=== PATIENT | male | born 1950 | race Hispanic/Latino ===

== ENCOUNTER 2018-01-11 13:39 | Emergency (ER) | payer MEDICARE ==
[2018-01-11 14:14] LABS: Base Excess-Venous 0.3 mmol/L (0 (+/- 2.5)); CO2 Tension (PvCO2) 39.9 mmHg (41.0-51.0); Calcium, Ionized 1.15 mmol/L (1.12-1.32); Hemoglobin - Calc 15.4 g/dL (12.0-18.0); O2 Tension (PvO2) 42.1 mmHg (35.0-45.0); Potassium 3.5 mmol/L (3.4-4.7); T. Carbon Dioxide 26.2 mmol/L (1.0-85.0); pH (Venous) 7.405 (7.35-7.45); vO2 Saturation-calc 77.9 % (94-98)
[2018-01-11 14:19] LABS: #Eosinphils 0.1 thou/uL (0.0-0.7); #Lymphocytes 2.6 thou/uL (1.20-3.40); #Monocytes 0.4 thou/uL (0.11-0.59); #Neutrophils 6.1 thou/uL (1.40-6.50); %Basophils 0.5 % (0.0-1.0); %Eosinophils 1.3 % (0.0-10.0); %Lymphocytes 27.8 % (21.0-51.0); %Monocytes 4.7 % (0.0-10.0); %Neutrophils 65.7 % (42.0-75.0); Hemoglobin 16.5 g/dL (14.0-18.0); Mean Corpuscular HGB CONC 36.1 g/dL (32.0-36.0); Mean Corpuscular Hemoglobin 32.2 pg (27.0-31.0); Mean Platelet Volume 9.5 fL (7.4-10.4); Platelet Count 212 thou/uL (130-400); RBC Distribution Width 12.2 % (11.5-14.5); Red Blood Cell (RBC) Count 5.12 mill/uL (4.70-6.10); White Blood Cell (WBC) Count 9.3 thou/uL (4.8-10.8)
[2018-01-11 14:32] LABS: ALT (SGPT) 27 U/L (8-55); AST (SGOT) 21 U/L (5-34); Albumin 4.3 g/dL (3.4-4.8); Alkaline Phosphatase 78 U/L (40-150); Anion Gap 15 mmol/L (10-20); BUN (Urea Nitrogen) 14 mg/dL (8.4-25.7); Bilirubin, Total 0.4 mg/dL (0.2-1.2); Calc. Creatinine Clearance 0 mL/min (70-130); Calcium 9.9 mg/dL (7.8-10.44); Carbon Dioxide 24 mmol/L (23-31); Chloride 100 mmol/L (98-107); Estimated GFR-MDRD 53; Globulin 3.9 g/dL (2.4-3.5); Glucose 361 mg/dL (80-115); Potassium 3.6 mmol/L (3.5-5.1); Protein, Total 8.2 g/dL (5.8-8.1); Sodium 135 mmol/L (136-145)
[2018-01-11 14:40] LABS: Bilirubin Negative (Negative); Blood, Urine Trace (Negative); Clarity CLEAR (Clear); Glucose, Urine (Dipstick) >=1000 mg/dL (Negative); Leukocyte Negative (Negative); Nitrite Negative (Negative); Protein, Urine (Dipstick) 300 mg/dL (Neg-Trace); Specific Gravity, Urine 1.016 (1.002-1.036); Urobilinogen 0.2 mg/dL (0.2-1.0); pH, Urine 6.5 (5.0-9.0)
[2018-01-11 14:41] LABS: Bacteria/HPF None Seen HPF (None Seen); Hyaline Casts/LPF 0-3 HYALINE CAST LPF (0-3 Hyaline); Pathc Cast-AUWi Flag 0.29 (0-2.49); RBC/HPF 0-3 HPF (0-3); Squamous Epithelial 0-3 HPF (0-3); WBC/HPF None Seen HPF (0-3)
[2018-01-11] MEDS ORDERED: Acetaminophen 500 MG TAB ONE (14:50)
[2018-01-11] MEDS ORDERED: Insulin Regular 300 UNITS/3 ML VIAL ONE (15:52)
[2018-01-11 16:09] LABS: Hemoglobin A1c 9.6 % (4.0-6.0)
--- NOTE | 2018-02-19 15:45 | EKG ---
Test Reason : Blood Pressure : / mmHG Vent. Rate : 087 BPM Atrial Rate : 087 BPM P-R Int : 152 ms QRS Dur : 150 ms QT Int : 438 ms P-R-T Axes : 034 -56 -02 degrees QTc Int : 527 ms Normal sinus rhythm Left axis deviation Non-specific intra-ventricular conduction block Abnormal ECG Similar to 23-JAN-2011 Confirmed by ELBERT FLORES MD ([id number]), editor in chief newspaper ELVIA SCOTT ([id number]) on 02/19/2018 3:45:43 PM Referred By: Confirmed By:ELBERT FLORES MD
== END 2018-01-11 18:45 | disposition home or self-care (01) ==
LOC: ERS 13:39
DX: E11.65 Type 2 diabetes mellitus with hyperglycemia (principal); I10 Essential (primary) hypertension; F32.9 Major depressive disorder, single episode, unspecified; F17.210 Nicotine dependence, cigarettes, uncomplicated; Z79.899 Other long term (current) drug therapy; Z79.84 Long term (current) use of oral hypoglycemic drugs
CPT/HCPCS: 36416; 80053; 81003; 81015; 82010; 82330; 82803; 83036; 85025; 93005; 96361; 96374; 96376; J1815

== ENCOUNTER 2020-03-01 | Inpatient (IN) | payer MEDICARE, OTHER | END 2020-03-04 18:40 | disposition home or self-care (01) | DRG 291 | PROVIDERS: ADMIT Internal Medicine | PROC: 8E0ZXY6 Isolation (ICD-10-PCS; principal; 2020-03-01) | DX: I13.0 Hypertensive heart and chronic kidney disease with heart failure and stage 1 through stage 4 chronic kidney disease, or unspecified chronic kidney disease (principal); J96.01 Acute respiratory failure with hypoxia; I50.33 Acute on chronic diastolic (congestive) heart failure; I45.2 Bifascicular block; Z20.828 Contact with and (suspected) exposure to other viral communicable diseases; E78.5 Hyperlipidemia, unspecified; E11.22 Type 2 diabetes mellitus with diabetic chronic kidney disease; N18.9 Chronic kidney disease, unspecified; Z90.49 Acquired absence of other specified parts of digestive tract; Z88.5 Allergy status to narcotic agent; Z87.891 Personal history of nicotine dependence ==

== ENCOUNTER 2020-07-03 15:13 | Inpatient (IN) | payer MEDICARE, OTHER ==
[~2020-07-03 15:13] MED LIST: Iopamidol-370 76% 500 ML 1 ML ONE
--- NOTE | 2020-07-03 15:40 | RAD ---
Exam: Chest one view HISTORY:Shortness of breath Comparison: 03/02/2020 FINDINGS: Cardiac silhouette:Right heart border is obscured Aorta: Atherosclerotic Pulmonary vessels: Prominent Costophrenic angles: Interval development of a right pleural effusion with presumed loculation. LUNGS: Opacification the right lung due to atelectasis, pneumonia or aspiration. Additional scattered interstitial opacities throughout the lung parenchyma. Pneumothorax: None Osseous abnormalities: None IMPRESSION: 1. Possible interstitial edema or infiltrate. 2. Atherosclerosis 3. Pleural and parenchymal changes in the right hemithorax, incompletely evaluated. Consider CT.
[2020-07-03 15:43] LABS: #Lymphocytes 1.2 thou/uL (1.20-3.40); #Monocytes 0.7 thou/uL (0.11-0.59); #Neutrophils 8.6 thou/uL (1.40-6.50); %Basophils 0.3 % (0.0-1.0); %Eosinophils 0.1 % (0.0-10.0); %Monocytes 6.9 % (0.0-10.0); %Neutrophils 81.6 % (42.0-75.0); Mean Corpuscular HGB CONC 29.7 g/dL (32.0-36.0); Mean Corpuscular Hemoglobin 20.8 pg (27.0-31.0); Mean Corpuscular Volume 69.8 fL (78.0-98.0); Mean Platelet Volume 8.1 fL (7.4-10.4); Platelet Count 462 thou/uL (130-400); RBC Distribution Width 17.4 % (11.5-14.5); Red Blood Cell (RBC) Count 4.32 mill/uL (4.70-6.10); White Blood Cell (WBC) Count 10.5 thou/uL (4.8-10.8)
[2020-07-03 15:51] LABS: ALT (SGPT) 34 U/L (8-55); AST (SGOT) 24 U/L (5-34); Albumin 3.2 g/dL (3.4-4.8); Alkaline Phosphatase 237 U/L (40-110); Anion Gap 16 mmol/L (10-20); BUN (Urea Nitrogen) 18 mg/dL (8.4-25.7); Bilirubin, Total 0.7 mg/dL (0.2-1.2); Calc. Creatinine Clearance 0 mL/min (70-130); Calcium 9.3 mg/dL (7.8-10.44); Carbon Dioxide 20 mmol/L (23-31); Chloride 104 mmol/L (98-107); Estimated GFR-MDRD 45; Globulin 4.6 g/dL (2.4-3.5); Glucose 174 mg/dL (80-115); Potassium 4.3 mmol/L (3.5-5.1); Protein, Total 7.8 g/dL (5.8-8.1); Sodium 136 mmol/L (136-145)
[2020-07-03 15:58] LABS: Hypochromia SLIGHT = 6-15 cells (100X) (0-5/hpf); MDiff Complete? YES; Microcytosis MODERATE=15-30 cells (100X) (0-5/hpf); Ovalocytes SLIGHT = 2-5 cells (100X) (0-1/hpf); Platelet Morphology Comment Appears Increased; Polychromasia SLIGHT = 2-3 cells (100X) (0-2/hpf); Target Cells SLIGHT = 2-5 cells (100X) (0-1/hpf)
[2020-07-03 16:32] LABS: CK (CPK) 27 U/L (30-200); Lipase 32 U/L (8-78)
--- NOTE | 2020-07-03 16:38 | CT ---
CT arteriogram chest with IV contrast and 3-D imaging HISTORY: Dyspnea. COMPARISON: 03/01/2020. FINDINGS: There is good contrast opacification pulmonary arteries and thoracic aorta with normal bran jennifer of the great vessels at the aortic arch. There is calcification within the coronary arteries and other arterial structures. Large amount right pleural fluid with atelectasis involving the right lower lobe. At the left postero lateral lung base is a 2.0 cm lobular soft tissue density nodule abutting the pleura. Additional scattered nodules involve each lung, measuring up to 0.8 cm at the superior segment left lower lobe a nd 1.1 cm at the left anterolateral costophrenic angle. Some nodules demonstrate a spiculated margin. 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 At the subcarinal level of the mediastinum, a lobular lymph node measures up to 2.7 cm. Enlarged prev ascular lymph nodes of the mediastinum measure up to 2.1 cm. Within the partially visualized upper abdomen, a heterogeneous, somewhat ill-defined soft tissue dens ity mass at the posterior aspect of the left upper quadrant arises from or abuts the posterior margin of the spleen. On the axial images it measures up to 9.3 cm greatest diameter. There is subtle stranding in the adjacent fat. IMPRESSION : No CT evidence of pulmonary embolus. Multiple bilateral lung nodules highly suspicious for metastatic disease given the aggressive appeari ng partially visualized left abdominal mass. It may arise from the left kidney or the spleen. Dedicated CT abdomen/pelvis should be performed for better characterization and complete evaluation. IV contrast would be very important, therefore perhaps an interval for renal recovery would be appropriate before the CT abdomen/pelvis (with contrast). Mediastinal adenopathy. Large right pleural effusion and compressive atelectasis likely accounts for dyspnea. Atherosclerosis.
[2020-07-03] MEDS ORDERED: Furosemide 40 MG/4 ML VIAL ONE (17:07)
[2020-07-03] MEDS ORDERED: Nitroglycerin 2% Ointment 1 INCH/1 GM Packet ONE (17:07)
[2020-07-03 17:32] LABS: Bacteria/HPF None Seen HPF (None Seen); Bilirubin Negative (Negative); Blood, Urine Negative (Negative); Clarity Clear (Clear); Glucose, Urine (Dipstick) Normal (Negative); Ketone, Urine Negative (Negative); Leukocyte Negative Leu/uL (Negative); Nitrite Negative (Negative); Protein, Urine (Dipstick) 70 mg/dL (Neg-Trace); RBC/HPF 0-3 HPF (0-3); Squamous Epithelial 0-3 HPF (0-3); Urobilinogen Normal mg/dL (Less than 2); WBC/HPF 0-3 HPF (0-3); pH, Urine 6.5 (5.0-9.0)
[2020-07-03] MEDS ORDERED: Acetaminophen 650 MG Suppository PR PRN (18:44)
[2020-07-03] MEDS ORDERED: Dextrose 5% in Water 1,000 ML IV PRN (19:00)
[2020-07-03] MEDS ORDERED: Dextrose 50% Abboject 50 ML SYRINGE SLOW IVP PRN (19:00)
[2020-07-03] MEDS ORDERED: HumaLOG 300 UNITS/3 ML VIAL SC PRN (19:00)
--- NOTE | 2020-07-03 19:56 | PDOC.HHP ---
Hospitalist HPI - History of Present Illness SOB History of Present Illness: Patient presents to the hospital after being prompted by his primary care physician office to come in due to complaints of increasing shortness of breath and odynophagia. He was told it would be best for him to be seen at [facility] and after he was seen there he was transferred here to the ED. He complains of shortness of breath while at rest and becomes winded when speaking in long sentences. He was recently admitted/discharged from the hospital in 02/2020 after being treated for CHF. Approximately 5 weeks ago he began to note progressively worsening shortness of breath with exertion. He noticed difficulty going up the stairs since 3 weeks ago. The shortness of breath while at rest has become prominent in the last couple of weeks. No cough or hemoptysis. No chest pain, palpitations or shortness of breath. His appetite has significantly diminished in the last 3-4 weeks with a subsequent weight loss of 25lbs. States he has limited fluid intake due to his history of heart failure. He reports some odynophagia since 3 weeks ago which he attributed to eating a Dorito that scratched is throat and has been painful since. Denies any dysphagia or regurgitation with food. Has not had any nausea or vomiting. No hematemesis. Has not noted any diarrhea, constipation, melena or bright red blood per rectum. No abdominal pain. Denies any fevers, chills or sweats. ED COURSE: EKG done showed NSR with RBBB, left anterior fascicular block, HR 89. No ST changes or T wave abnormalities. Chest xray done: 1. Possible interstitial edema or infiltrate. 2. Atherosclerosis 3. Pleural and parenchymal changes in the right hemithorax, incompletely evaluated. Consider CT. CTA Chest: Multiple bilateral lung nodules highly suspicious for metastatic disease. Partially visualized left abdominal mass, possibly arising from left kidney or spleen. CT A/P with contrast recommended. Mediastinal adenopathy present. A large pleural effusion and compressive atelectasis noted. Atherosclerosis. Labs showed a normal lactic acid. LFTs notable for alk phos of 237. LFTs normal. WCC 10.5, Hgb 9, platelets 462. Neutrophils 81.6%. Creat 1.54, GFR 45, BUN 18. Troponin negative. UA was unremarkable. He was given 40 mg of IV Lasix, 500 mLs of NS and 1 inch of nitro-bid. Consult placed to pulmonology and GI. PAST MEDICAL HISTORY: 1. Diabetes Mellitus Type 2 2. Hypertension. 3. CKD. 4. HF. 5. Dyslipidemia. PAST SURGICAL HISTORY: 1. Appendectomy. FAMILY HISTORY: Noncontributory. SOCIAL HISTORY: Patient lives with his family. He states he occasionally smoked until he quit in February. Denies any alcohol consumption or drug use. He is fully independent and lives with his family. ALLERGIES: Codeine. CURRENT MEDICATIONS: 1. Amlodipine. 2. Atenolol. 3. Lisinopril. 4. Metformin. 5. Simvastatin. 6. Glipizide. 7. Hydralazine. - Exam General Appearance: NAD, awake alert General - other findings: BP: 170/89, Pulse: 89, Resp: 24, Temp: 97.6 (Oral), Pain: 0, O2 sat: 97 RA Eye: PERRL, anicteric sclera ENT: normocephalic atraumatic ENT - other findings: beefy red appearing tongue Neck: supple, symmetric, no lymphadenopathy Heart: RRR, no murmur, no gallops, no rubs, normal peripheral pulses Respiratory: CTAB, no wheezes, no rales, no ronchi, normal chest expansion Respiratory - other findings: tachypneic when speaking, otherwise no SOB when at rest. Gastrointestinal: soft, non-tender, non-distended, normal bowel sounds, no palpable masses, no guarding, no rigidity Extremities: no edema Skin: normal turgor, no lesions, no rashes Neurological: cranial nerve grossly intact, normal sensation to touch Musculoskeletal: normal tone, normal strength, no muscle wasting Psychiatric: normal affect, normal behavior, A&O x 3 Hospitalist Results - Labs Result Diagrams: 07/03/20 15:29 07/03/20 15:29 Lab results: WBC 10.5 thou/uL (4.8-10.8) 07/03/20 15: Hgb 9.0 g/dL (14.0-18.0) L 07/03/20 15: Hct 30.2 % (42.0-52.0) L 07/03/20 15: MCV 69.8 fL (78.0-98.0) L 07/03/20 15:29 Plt Count 462 thou/uL (130-400) H 07/03/20 15:29 Neutrophils % 81.6 % (42.0-75.0) H 07/03/20 15:29 Sodium 136 mmol/L (136-145) 07/03/20 15:29 Potassium 4.3 mmol/L (3.5-5.1) 07/03/20 15: Chloride 104 mmol/L (98-107) 07/03/20 15: Carbon Dioxide 20 mmol/L (23-31) L 07/03/20 15:29 BUN 18 mg/dL (8.4-25.7) 07/03/20 15: Creatinine 1.54 mg/dL (0.7-1.3) H 07/03/20 15: Glucose 174 mg/dL (80-115) H 07/03/20 15:29 Lactic Acid 1.0 mmol/L (0.5-2.2) 07/03/20 16:32 Calcium 9.3 mg/dL (7.8-10.44) 07/03/20 15: Total Bilirubin 0.7 mg/dL (0.2-1.2) 07/03/20 15:29 AST 24 U/L (5-34) 07/03/20 15: ALT 34 U/L (8-55) 07/03/20 15:29 Alkaline Phosphatase 237 U/L (40-110) H 07/03/20 15:29 Creatine Kinase 27 U/L (30-200) L 07/03/20 15:29 Troponin I Less than 0.010 ng/mL (< 0.028) 07/03/20 15: B-Natriuretic Peptide 552.7 pg/mL (0-100) H 07/03/20 15:29 Serum Total Protein 7.8 g/dL (5.8-8.1) 07/03/20 15: Albumin 3.2 g/dL (3.4-4.8) L 07/03/20 15:29 Lipase 32 U/L (8-78) 07/03/20 15:29 Urine Ketones Negative mg/dL (Negative) 07/03/20 17:05 Urine Blood Negative (Negative) 07/03/20 17:05 Urine Nitrite Negative (Negative) 07/03/20 17:05 Ur Leukocyte Esterase Negative Fatuma/uL (Negative) 07/03/20 17:05 Urine RBC 0-3 HPF (0-3) 07/03/20 17:05 Urine WBC 0-3 HPF (0-3) 07/03/20 17:05 Ur Squamous Epith Cells 0-3 HPF (0-3) 07/03/20 17:05 Urine Bacteria None Seen HPF (None Seen) 07/03/20 17:05 - Radiology Interpretation CT scan - chest Status: report reviewed by me Hospitalist H&P A/P - Problem (1) Increasing shortness of breath Code(s): R06.02 - SHORTNESS OF BREATH Status: Acute (2) Pleural effusion Code(s): J90 - PLEURAL EFFUSION, NOT ELSEWHERE CLASSIFIED Status: Acute (3) Multiple lung nodules Status: Acute (4) Diabetes mellitus Code(s): E11.9 - TYPE 2 DIABETES MELLITUS WITHOUT COMPLICATIONS Status: C hronic (5) HTN (hypertension) Code(s): I10 - ESSENTIAL (PRIMARY) HYPERTENSION Status: Chronic (6) CHF (congestive heart failure) Code(s): I50.9 - HEART FAILURE, UNSPECIFIED Status: Chronic Qualifiers: Heart failure type: diastolic (7) HLD (hyperlipidemia) Code(s): E78.5 - HYPERLIPIDEMIA, UNSPECIFIED Status: Chronic - Plan Plan: Monitor O2 sats. Obtain ABG. Pulmonary consult placed to pulmonology, would benefit from thoracentesis, ?malignant pleural effusion. Recently diagnosed with Diastolic HF. Consult placed for HF management. Continue lasix 20 mg IV BID. Monitor BP and reconcile home medications as appropriate. Possible mass noted on CTA Chest, for CT A/P with contrast tomorrow. Consult placed to GI by ED. Obtain coags with morning labs. Monitor glucose and continue ISS. Keep NPO after midnight for possible procedures tmrw. Monitor renal function. Patrol Commander consulted. DVT Prophylaxis with mechanical SCDs. Hold anticoagulation for now.
[2020-07-03 21:38] LABS: INR-International Normal Ratio 1.3; Prothrombin Time 16.7 sec (12.0-14.7)
[2020-07-03 21:39] LABS: PTT 44.2 sec (22.9-36.1)
[2020-07-04 04:50] LABS: #Eosinphils 0.1 thou/uL (0.0-0.7); #Lymphocytes 1.5 thou/uL (1.20-3.40); #Neutrophils 6.5 thou/uL (1.40-6.50); %Basophils 0.5 % (0.0-1.0); %Eosinophils 0.6 % (0.0-10.0); %Lymphocytes 16.5 % (21.0-51.0); %Monocytes 10.5 % (0.0-10.0); %Neutrophils 71.9 % (42.0-75.0); Hemoglobin 8.5 g/dL (14.0-18.0); Mean Corpuscular HGB CONC 29.3 g/dL (32.0-36.0); Mean Corpuscular Hemoglobin 20.4 pg (27.0-31.0); Mean Corpuscular Volume 69.5 fL (78.0-98.0); Mean Platelet Volume 8.4 fL (7.4-10.4); Platelet Count 481 thou/uL (130-400); RBC Distribution Width 17.3 % (11.5-14.5); Red Blood Cell (RBC) Count 4.18 mill/uL (4.70-6.10); White Blood Cell (WBC) Count 9.1 thou/uL (4.8-10.8)
[2020-07-04 05:01] LABS: Anion Gap 15 mmol/L (10-20); BUN (Urea Nitrogen) 18 mg/dL (8.4-25.7); Calc. Creatinine Clearance 62 mL/min (70-130); Calcium 9.1 mg/dL (7.8-10.44); Carbon Dioxide 24 mmol/L (23-31); Chloride 102 mmol/L (98-107); Estimated GFR-MDRD 48; Glucose 96 mg/dL (80-115); Potassium 3.6 mmol/L (3.5-5.1); Sodium 137 mmol/L (136-145)
[2020-07-04] MEDS: Furosemide 20 MG/2 ML VIAL SLOW IVP SCH ×2 (05:34→14:43)
[2020-07-04] MEDS: Famotidine/PF 20 mg/2ml Vial SLOW IVP SCH (08:50)
--- NOTE | 2020-07-04 11:11 | CON ---
DATE OF CONSULTATION: 07/04/2020 This encompassed 35 minutes time, of that time greater than 50% spent with the patient and/or the patient's unit in the hospital. REASON FOR CONSULTATION: Shortness of breath. HISTORY OF PRESENT ILLNESS: This is a 70-year-old male, who comes in to the hospital with 3-month history of increasing shortness of breath and a 40-pound weight loss. He says he was originally in the hospital 3 months ago with similar complaints. At that time, he was treated for congestive heart failure. He was given IV Lasix for diastolic dysfunction. Apparently, got somewhat better and was discharged home. He said within a week or 2, he was short of breath again. He has continued to lose weight. Workup during this hospitalization has demonstrated a fairly substantial left pleural effusion and also an abdominal mass in the perisplenic area. He endorses early satiety, difficulty swallowing. He has had no nausea or vomiting. He has had no bowel or bladder changes. He says the stool looks normal. PAST MEDICAL HISTORY: 1. Hypertension. 2. Diabetes mellitus type 2. 3. Chronic kidney disease. 4. Diastolic heart dysfunction. 5. Hyperlipidemia. PAST SURGICAL HISTORY: Appendectomy from ruptured appendix. FAMILY MEDICAL HISTORY: Unremarkable. SOCIAL HISTORY: Occasionally smokes cigarettes, but he says he has never been a heavy smoker. He quit drinking some time ago. He is . He is a former fiber glass worker. He is originally from the [facility], but spent most of his adult years in [place] and [facility]. ALLERGIES: CODEINE. MEDICATIONS: Prior to admission; 1. Amlodipine. 2. Atenolol. 3. Lisinopril. 4. Metformin. 5. Simvastatin. 6. Glipizide. 7. Hydralazine. REVIEW OF SYSTEMS: Twelve-point review of systems is otherwise negative except for that mentioned above. PHYSICAL EXAMINATION: VITAL SIGNS: Temperature 98.5, pulse 77, respirations 13, O2 sat 95% on room air, blood pressure 163/74. GENERAL: He is awake, alert, and in no acute distress. HEENT: Unremarkable. NECK: No adenopathy or JVD. LUNGS: He has diminished breath sounds in the right 1/2 lung field posteriorly. He has dullness to percussion in that same region. His left side is clear. CARDIAC: S1 and S2, regular. ABDOMEN: Soft and nontender. I cannot palpate a mass. EXTREMITIES: No clubbing, cyanosis, or edema. LABORATORY DATA: White blood cell count 9.1, hematocrit 29, and platelet count 481. INR 1.3. Sodium 137, potassium 3.6, chloride 102, CO2 of 24, BUN 18, creatinine 1.5, and glucose 96. I reviewed his CT scan personally, it shows a fairly substantial right-sided pleural effusion. It looks like there is a mass at the apex without effusion in the right mid lung field peripherally. There is a fairly profound abdominal mass. There are scattered pulmonary nodules. There is some periaortic lymphadenopathy in the left hilar area. ASSESSMENT: 1. Massive left pleural effusion. 2. Abdominal mass with metastasis to the lungs. PLAN: Diagnostic and therapeutic right thoracentesis. I discussed the risks of the procedure with the patient including bleeding, infection, external lung puncture. He agrees to proceed. Further disposition to follow. Job ID: [id number]
--- NOTE | 2020-07-04 11:29 | OP ---
DATE OF PROCEDURE: 07/04/2020 PROCEDURE PERFORMED: Right thoracentesis. PREOPERATIVE DIAGNOSIS: Right pleural effusion. POSTOPERATIVE DIAGNOSIS: Right pleural effusion. ANESTHESIA: 1% lidocaine without epinephrine. DESCRIPTION OF PROCEDURE: Informed consent was obtained prior to the procedure explaining the risks to the patient including bleeding, infection, and external lung puncture. He agreed to proceed. The patient was placed in a sitting position. The right posterior hemothorax was scrubbed with chlorhexidine at the lateral scapular edge of the 5th, 6th interspace posteriorly. 1% lidocaine was used to anesthetize the operative site. A Waat-P-Slsujvcl catheter was inserted in the pleural space. Approximately 2 L of greenish brown pleural fluid was removed and was sent for appropriate studies. He tolerated the procedure well. Job ID: [id number]
[2020-07-04 11:52] LABS: RBC Count-Automated (BF) 23 /cu.mm; WBC/Nucleated-Auto (BF) 338 uL
[2020-07-04 11:53] LABS: Pleural Fluid, Protein 4.3 g/dL
[2020-07-04 12:18] LABS: BF Color Yellow; Body Fluid Source Thoracentesis Fluid; Clarity Hazy (Clear); Tube # 3
[2020-07-04 12:20] LABS: Cell Count Non Hematic 68 %; Lymphocytes 27 %
[2020-07-04 12:21] LABS: BF Segmented Neutrophils 4 %
[2020-07-04 13:15] LABS: SARS-CoV-2 MS2 Positive; SARS-CoV-2 N Gene Negative; SARS-CoV-2 S Gene Negative; SARS-CoV-2 by NAA Not Detected (NotDetected); SARS-CoV-2 orf1ab Negative
--- NOTE | 2020-07-04 14:24 | RAD ---
PORTABLE CHEST: INDICATION: Post thoracentesis. COMPARISON: 07/03/2020. FINDINGS: Right side effusion again noted, although decreased in size when compared to yesterday's exam consist ent with the history of thoracentesis. No evidence of pneumothorax. Hazy infiltrate or atelectasis in the left lung base. Probable small left effusion. IMPRESSION: Bilateral effusions, slightly larger on the right. Right effusion has decreased when compared to yes terday's exam consistent with the history of thoracentesis. POS: AGW
[2020-07-04] MEDS ORDERED: GoLYTELY 4,000 ml Bottle PO SCH (17:00)
--- NOTE | 2020-07-04 19:12 | CON ---
DATE OF CONSULTATION: 07/04/2020 REASON FOR CONSULTATION: Odynophagia, abnormal GI imaging. CONSULTING PROVIDER: Rehan Rivera MD HISTORY OF PRESENT ILLNESS: The patient is a 70-year-old male, with past medical history of hypertension, diabetes, chronic kidney disease, congestive heart failure with diastolic dysfunction, hyperlipidemia, and GERD, who initially presented to his PCP's office with complaints of shortness of breath and odynophagia. He states that over the last 5 to 6 weeks, he has been having progressively worsening shortness of breath resulting in conversational dyspnea in addition to chest pressure/pain. However, approximately five days ago while setting up a constitution party, the patient was eating Doritos chips and after consuming a "sharp chip," he experienced immediate onset of sharp stabbing abdominal pain located primarily at the cricoid cartilage, it was nonradiating, and reached a severity of 4/10. Over the next 4 to 5 days, this pain continued with exacerbation of his pain primarily with eating or drinking either solids or liquid food stuffs. He has noticed no significant change in the character or the severity of pain over the last week. However, he has noticed increased episodes of coughing, especially when lying on the patient's right side. Otherwise, the patient denied any nausea, vomiting, fevers, chills, hematemesis, melena, hematochezia, diarrhea, or constipation. However, he adds that he has lost approximately 40 pounds over the last six weeks unintentionally that he attributes to anorexia/decreased appetite. On evaluation of the patient at [facility], the patient was noted to have a large right pleural effusion, for which the patient underwent thoracentesis earlier today with approximately 2 L of fluid withdrawn. After the paracentesis, the patient has experienced significant improvement in both of his chest pressure/pain in addition to shortness of breath. However, also during the course of his workup, he was noted to have the incidental finding of a large intraabdominal mass on the CT chest in addition to significant lymphadenopathy in the mediastinum and spiculated nodules throughout the lung concerning for metastatic disease. REVIEW OF SYSTEMS: A 10-category review of systems was obtained with all responses negative, except for the pertinent positives as listed in the HPI. PAST MEDICAL HISTORY: As per HPI. PAST SURGICAL HISTORY: Appendectomy. FAMILY HISTORY: Denies any GI malignancies. SOCIAL HISTORY: Denies any tobacco, alcohol, or illicit drug use, although the patient did quit smoking in February 2020. OUTPATIENT MEDICATIONS: Reviewed. ALLERGIES: CODEINE. PHYSICAL EXAMINATION: VITAL SIGNS: Temperature 98.7, pulse 85, blood pressure 168/78, respiratory rate 21, and saturating 97% on room air. GENERAL: The patient is sitting in a chair at bedside, in no acute distress. Alert and oriented x4. HEENT: Normocephalic and atraumatic. NECK: Supple. No JVD or scleral icterus noted. CARDIOVASCULAR: Regular rate and rhythm, with no discernible murmurs, gallops, or rubs. RESPIRATORY: Clear to auscultation in the bilateral upper lung akhtar. Diminished breath sounds were auscultated in the right lower lung akhtar, but clear on the left. ABDOMEN: Normoactive bowel sounds. Soft, nontender, and nondistended. EXTREMITIES: No cyanosis, clubbing, or edema. LABORATORY DATA: CBC with a white blood cell count of 9.1, hemoglobin 8.5, hematocrit 29, and platelets 481. Chemistry with a sodium of 137, potassium 3.6, chloride 102, CO2 of 24, BUN 18, creatinine 1.46, and glucose 96. AST 24, ALT 34, alkaline phosphatase 237, total bilirubin 0.7, and albumin 3.2. IMAGING DATA: The patient underwent CT angiography of the chest on July 03, 2020, which showed no evidence of pulmonary embolism, however, did show a large right pleural effusion in addition to scattered nodules throughout both lungs as well as a 2 cm soft tissue density in the left lung base. In addition to the lung findings, there was significant mediastinal lymphadenopathy with lymph nodes measuring up to 2.7 cm in size. However, the incidental finding of an ill-defined abdominal mass was seen posterior to the spleen on the left abdomen measuring approximately 9.3 cm in size, but incompletely characterized due to the nature of the study. ASSESSMENT AND PLAN: The patient is a 70-year-old male, with past medical history of hypertension, diabetes, chronic kidney disease, congestive heart failure with diastolic dysfunction, hyperlipidemia, and gastroesophageal reflux disease, presenting with odynophagia and abnormal GI imaging showing an intraabdominal mass with unknown origin. Odynophagia. The patient is presenting with sudden onset of dysphagia after eating a sharper-type food (Doritos chip) approximately 1 week ago with sudden onset of pain with ingestion that has not diminished in terms of frequency or severity of the pain over the last week. He also describes increased dysphagia associated with this particular sensation where he feels the food is feeling like it is getting stuck at the level of the cricoid cartilage and would occur with both solids and liquid food stuffs. At this time, it could be related to a mucosal injury related to the ingestion of a sharper food stuff resulting in laceration of the esophageal mucosa, but I would hope that it would have at least begun to heal over the course of the last week with the concurrent diagnosis of metastatic disease from an unknown primary, and esophageal lesion cannot be ruled out at this time. RECOMMENDATIONS: 1. Pain control per primary team, but would hold on use of sucralfate given impending EGD tomorrow. 2. We will make the patient n.p.o. at midnight in preparation for EGD tomorrow for intraluminal evaluation for odynophagia. 3. Continue patient on pantoprazole 40 mg IV b.i.d. in light of possible acid reflux generating his symptoms. 4. Further recommendations to follow EGD. Abnormal GI imaging showing an intraabdominal mass with unknown origin. The patient initially presented with increased shortness of breath, prompting obtaining a CT angiography for possible pulmonary embolism. However, incidentally during the study, he was noted to have multiple spiculated nodules within the lungs in addition to mediastinal lymphadenopathy, a soft tissue density within the left lung base in addition to an ill-defined mass measuring 9.3 cm in size posterior to the spleen. At this time, the origin of these masses are unknown but likely consistent with metastatic disease. Upon questioning the patient, he states that his last colonoscopy was performed approximately nine years ago with normal findings. He further denies any family history of polyps or cancer which places him at average risk for the formation of colorectal cancer. However, given the nature of this metastatic disease, a colonic primary cannot be ruled out at this time. Recommendations. 1. We would place the patient on a clear liquid diet today with n.p.o. status at midnight in preparation for colonoscopy. 2. We would administer 2 L of GoLYTELY prep tonight with the remaining 2 L of GoLYTELY prep administered tomorrow morning (between 3:00 a.m. to 5:00 a.m.) as part of colonoscopy prep. 3. We would plan for EGD and colonoscopy tomorrow for intraluminal evaluation of odynophagia and possible colonic malignancy respectively. 4. Pain control per primary team, but could consider ingestion of viscous lidocaine. I would hold on sucralfate for now given that it would interfere with visualization of the esophageal mucosa. 5. Agree with obtaining a dedicated CT of the abdomen and pelvis tomorrow with contrast. We will continue to follow. Please call with any questions. Job ID: [id number]
--- NOTE | 2020-07-04 19:16 | PDOC.HOSPP ---
- Subjective Subjective: Patient was seen examined at bedside. Patient stated his breathing has improved. He denies any chest pain. Patient is being evaluated by pulmonology for thoracocentesis. - Objective Vital Signs & Weight: Vital Signs (12 hours) Temp Pulse Resp BP BP Pulse Ox 07/04/20 16:54 98.7 F 81 24 H 176/81 H 95 07/04/20 10:58 98.7 F 85 21 H 168/78 H 97 07/04/20 07:32 98.5 F 77 13 163/74 H 95 Weight Admit Weight 203 lb 11.312 oz Weight 201 lb 0.985 oz I&O: 07/03/20 07/04/20 07/05/20 06:59 06:59 06:59 Output Total 1999 -1999 Result Diagrams: 07/04/20 03:56 07/04/20 03:56 Additional Labs: Accuchecks 07/04/20 07/04/20 07/04/20 17:46 11:07 06:11 POC Glucose 210 H 95 98 07/03/20 21:31 POC Glucose 169 H Radiology Reviewed by me: Yes EKG Reviewed by me: Yes Hospitalist ROS - Medication Medications: Active Medications Generic Name Dose Route Start Last Admin Trade Name Freq PRN Reason Stop Dose Admin Famotidine 20 mg 07/04/20 09:00 07/04/20 08:50 Famotidine/Pf 20 Mg/2ml Vial SLOW IVP 20 mg DAILY MAC Administration Furosemide 20 mg 07/04/20 06:00 07/04/20 14:43 Furosemide 20 Mg/2 Ml Vial SLOW IVP Not Given 0600,1400 MAC Polyethylene Glycol/Electrolytes 4,000 ml 07/04/20 17:00 07/04/20 16:58 Golytely 4,000 Ml Bottle PO 07/04/20 23:59 4,000 ml 1700 MAC Administration - Exam General Appearance: NAD Eye: PERRL ENT: normocephalic atraumatic Neck: supple Heart: RRR Respiratory: rhonchi Gastrointestinal: soft, non-tender Extremities: no cyanosis Skin: normal turgor Neurological: cranial nerve grossly intact Musculoskeletal: normal tone Psychiatric: normal affect, normal behavior, A&O x 3 Hosp A/P - Plan Multiple lung nodules concerning for metastatic disease --workup in progress. Pt will need tissue biopsy --Will obtain CT abd/pel with contrast. Monitor renal function --GI consult Large right pleural effusion --Pul consult for therapeutic and diagnostic thoracocentesis Acute on chronic diastolic heart failure --Last Echo showed preserved EF --Cont IV Lasix Diabetes type 2 --Hold Glipizide and Metformin given sporadic eating and Cr level/recent contrast study --cont ISS for now Hypertension --BP elevated, resume home meds Dyslipidemia --cont statin
[2020-07-04] MEDS: hydrALAZINE 25 MG TAB PO SCH (20:07)
[2020-07-04] MEDS: Carvedilol 25 MG TAB PO SCH (20:07)
[2020-07-04] MEDS ORDERED: glipiZIDE 10 MG TAB PO SCH (21:00)
[2020-07-05 04:36] LABS: #Eosinphils 0.1 thou/uL (0.0-0.7); #Monocytes 0.8 thou/uL (0.11-0.59); #Neutrophils 6.6 thou/uL (1.40-6.50); %Basophils 0.2 % (0.0-1.0); %Eosinophils 0.8 % (0.0-10.0); %Lymphocytes 12.1 % (21.0-51.0); %Monocytes 9.8 % (0.0-10.0); %Neutrophils 77.2 % (42.0-75.0); Hemoglobin 8.6 g/dL (14.0-18.0); Mean Corpuscular HGB CONC 30.2 g/dL (32.0-36.0); Mean Corpuscular Hemoglobin 20.8 pg (27.0-31.0); Mean Corpuscular Volume 68.9 fL (78.0-98.0); Mean Platelet Volume 8.5 fL (7.4-10.4); Platelet Count 449 thou/uL (130-400); RBC Distribution Width 17.1 % (11.5-14.5); Red Blood Cell (RBC) Count 4.12 mill/uL (4.70-6.10); White Blood Cell (WBC) Count 8.5 thou/uL (4.8-10.8)
[2020-07-05 05:01] LABS: Anion Gap 15 mmol/L (10-20); BUN (Urea Nitrogen) 17 mg/dL (8.4-25.7); Calc. Creatinine Clearance 58 mL/min (70-130); Calcium 8.5 mg/dL (7.8-10.44); Carbon Dioxide 25 mmol/L (23-31); Chloride 100 mmol/L (98-107); Estimated GFR-MDRD 46; Glucose 142 mg/dL (80-115); Potassium 3.6 mmol/L (3.5-5.1); Sodium 136 mmol/L (136-145)
--- NOTE | 2020-07-05 08:48 | PRG ---
DATE OF SERVICE: 07/05/2020 SUBJECTIVE: He does not feel much better after removal of fluid yesterday. He is scheduled for an EGD and colonoscopy today. OBJECTIVE: VITAL SIGNS: Temperature 98.1, pulse 81, respirations 15, O2 saturation 96%, blood pressure 157/74. HEENT: Unremarkable. NECK: No JVD. LUNGS: Fairly clear. CARDIAC: S1 and S2, regular. ABDOMEN: Soft. EXTREMITIES: No edema. LABORATORY DATA: White blood cell count 8.5, hematocrit 28.4, and platelet count 449. Sodium 136, potassium 3.6, BUN 17, creatinine 1.5, and glucose 142. The pleural fluid was slightly exudate. The differential showed mainly histiocytes, we are waiting for cytology. ASSESSMENT: Right pleural effusion, likely related to malignancy given findings on the abdominal CT. PLAN: Await cytology. Job ID: [id number]
[2020-07-05] MEDS ORDERED: Lisinopril 20 MG TAB PO SCH (09:00)
[2020-07-05] MEDS ORDERED: Lidocaine 1% PF 5 ML VIAL ONE (10:11)
[2020-07-05] MEDS ORDERED: PROPOFOL 200 MG/20 ML VIAL ONE (10:11)
[2020-07-05] MEDS ORDERED: Fluconazole 100 MG TAB PO SCH (11:30)
[2020-07-05] MEDS: Furosemide 20 MG/2 ML VIAL SLOW IVP SCH ×2 (11:34→14:20)
[2020-07-05] MEDS: Carvedilol 25 MG TAB PO SCH ×2 (11:34→17:38)
[2020-07-05] MEDS: hydrALAZINE 25 MG TAB PO SCH ×3 (11:35→21:00)
[2020-07-05] MEDS: Famotidine/PF 20 mg/2ml Vial SLOW IVP SCH (11:35)
--- NOTE | 2020-07-05 13:47 | OP ---
DATE OF PROCEDURE: 07/05/2020 PREPROCEDURE DIAGNOSES: 1. Suspected metastatic malignancy with lesions in the chest, lung, and 10 cm mass behind the spleen. 2. Previous right hemicolectomy from ruptured appendicitis, 12 to 15 years ago per the patient. 3. Severe odynophagia. ANESTHESIA: TIVA. POSTPROCEDURE DIAGNOSES: 1. Lizeth esophagitis, biopsied. Otherwise normal EGD. 2. Colonoscopy normal except for mild diverticulosis and right hemicolectomy. No signs of malignancy. RECOMMENDATIONS: 1. Diflucan 100 mg p.o. daily 100 mg IV daily for 14 days total treatment. 2. We will defer to primary service and Pulmonary to decide if his thoracentesis cytology is negative, which lesion is best to proceed with biopsying on for diagnosis. DESCRIPTION OF PROCEDURE: After the patient was informed of the risks, benefits, and possible complications of endoscopy including perforation, reaction to medication, and aspiration, informed consent was obtained, and the patient was brought to endoscopy suite, where he was sedated in gradual fashion. Once he was comfortable, a bite block was placed in the incisural orifice. The endoscope was advanced through esophagus, stomach, into second and third portions of the duodenum and slowly removed. The esophagus was notable for white to yellow plaques throughout the entire esophagus, consistent with Lizeth esophagitis. Biopsies were obtained and submitted to Pathology. The stomach was entered and found to be normal in forward and retroflexed views. The duodenum was normal up to third portion. The scope was removed. The patient was returned to the room and rectal examination was performed. The endoscope was advanced through the anal canal through the colon to the cecum. The cecum was not present. There was an end-to-side coloileal anastomosis, which appeared healthy. There were no signs of malignancy here. The prep was very good. The scope was slowly removed with only diverticula found. No masses or lesions were found. Retroflexed views revealed some small internal hemorrhoids. The scope was removed. The patient tolerated the procedure well. No complications. Job ID: [id number]
--- NOTE | 2020-07-05 17:52 | PDOC.HOSPP ---
- Subjective Subjective: Patient underwent EGD and colonoscopy, found Lizeth esophagitis, otherwise no intraluminal mass. Pleural fluid no malignant cells - Objective Vital Signs & Weight: Vital Signs (12 hours) Temp Pulse Resp BP Pulse Ox 07/05/20 11:27 96.6 F L 88 20 183/77 H 97 Weight Admit Weight 203 lb 11.312 oz Weight 198 lb 3.129 oz I&O: 07/04/20 07/05/20 07/06/20 06:59 06:59 06:59 Intake Total 4000 Output Total 1999 Balance 2000 Result Diagrams: 07/05/20 03:54 07/05/20 03:54 Additional Labs: Accuchecks 07/05/20 07/05/20 07/05/20 16:48 11:51 05:47 POC Glucose 203 H 131 H 149 H 07/04/20 20:17 POC Glucose 168 H Hospitalist ROS - Medication Medications: Active Medications Generic Name Dose Route Start Last Admin Trade Name Freq PRN Reason Stop Dose Admin Carvedilol 25 mg 07/04/20 21:00 07/05/20 17:38 Carvedilol 25 Mg Tab PO Not Given BID MAC Famotidine 20 mg 07/04/20 09:00 07/05/20 11:35 Famotidine/Pf 20 Mg/2ml Vial SLOW IVP 20 mg DAILY MAC Administration Furosemide 20 mg 07/04/20 06:00 07/05/20 14:20 Furosemide 20 Mg/2 Ml Vial SLOW IVP 20 mg 0600,1400 MAC Administration Hydralazine HCl 25 mg 07/04/20 21:00 07/05/20 14:20 Hydralazine 25 Mg Tab PO 25 mg TID MAC Administration - Exam General Appearance: NAD, awake alert Eye: PERRL ENT: normocephalic atraumatic Neck: supple, symmetric Heart: RRR, no murmur Respiratory: CTAB Gastrointestinal: soft, non-tender Extremities: no cyanosis Skin: normal turgor Neurological: cranial nerve grossly intact Musculoskeletal: normal tone Psychiatric: normal affect, normal behavior, A&O x 3 Hosp A/P - Plan Assessment and plan: 70 years old gentleman who has significant past medical histories of congestive heart failure with diastolic dysfunction, CKD 3, diabetes, hypertension, dyslipidemia, GERD, who was presented to ED with complaint of short of breath. Initial work-up including CTA, so multiple spiculated nodule within lung, and mediastinal lymphadenopathy concerning for metastatic disease. Multiple lung nodules concerning for metastatic disease --workup in progress. Pt will need tissue biopsy --s/p EGD/colonoscopy unrevealing --gentle hydration overnight, obtain CT abd/pel with contrast in AM Odynophagia --s/p EGD/Colonoscopy - lizeth esophagitis, started on Diflucan. No intraluminal mass to biopsy. Large right pleural effusion --Status post therapeutic/diagnostic thoracocentesis. Path: no malignant cell Acute on chronic diastolic heart failure --Last Echo showed preserved EF --Cont IV Lasix Diabetes type 2 --Hold Glipizide and Metformin given sporadic eating and Cr level/recent contrast study --cont ISS for now Hypertension --BP elevated, resume home meds Dyslipidemia --cont statin
[2020-07-05] MEDS: HumaLOG 300 UNITS/3 ML VIAL SC PRN (18:06)
[2020-07-05] MEDS ORDERED: Sodium Chloride 0.9% 500 ML IV SCH (21:00)
[2020-07-06] MEDS: Acetaminophen 325 MG TAB PO PRN ×2 (00:51→09:41)
[2020-07-06] MEDS: Furosemide 20 MG/2 ML VIAL SLOW IVP SCH ×2 (07:10→15:19)
[2020-07-06] MEDS ORDERED: Fluconazole 100 MG TAB PO SCH ×2 (09:00)
[2020-07-06] MEDS: Famotidine/PF 20 mg/2ml Vial SLOW IVP SCH (09:41)
[2020-07-06] MEDS: Carvedilol 25 MG TAB PO SCH (09:41)
[2020-07-06] MEDS: hydrALAZINE 25 MG TAB PO SCH ×2 (09:41→15:19)
--- NOTE | 2020-07-06 11:26 | PRG ---
DATE OF SERVICE: 07/06/2020 SUBJECTIVE: is actually doing fairly well. Cytology from the pleural fluid was negative. Apparently, he had a negative EGD and colonoscopy yesterday. I do not see that a full CT of the abdomen has ever been performed. PHYSICAL EXAMINATION: VITAL SIGNS: His temperature is 98.2, pulse 82, respirations 18, O2 saturation 96% on room air, and blood pressure 182/83. HEENT: Unremarkable. NECK: No JVD. LUNGS: Slightly diminished breath sounds in the right base. CARDIAC: S1 and S2. Regular. ABDOMEN: Soft. EXTREMITIES: No edema. ASSESSMENT: The patient has a known abdominal mass-perisplenic by CT scan. This measures at least 9.3 cm. He has a negative cytology on pleural effusion. I have a feeling the effusion will likely come back. It may be secondary to cancer. I think that he probably needs General Surgery consultation for laparoscopy and biopsy of the abdominal mass. Nothing further to add at this time. Job ID: [id number]
--- NOTE | 2020-07-06 11:35 | CT ---
CT ABDOMEN AND PELVIS PERFORMED WITH IV CONTRAST ENHANCEMENT: Date: 07/06/2020 HISTORY: Mass noted in left side of abdomen on recent CT angio of chest. COMPARISON: CT angio of chest of 07/03/2020. FINDINGS: A large right pleural effusion is identified. Small, 3-4 mm, nodular densities are seen within the ri ght middle and lower lobe. There is an approximately 5.0 mm nodule along the major fissure on the lef t and a larger 1.9 cm left lower lobe pulmonary nodule. There is another small pleural based area of nodularity seen along the left hemidiaphragm. The liver shows no focal abnormalities. The spleen is within normal limits of size. There is a large necrotic mass which arises from the upper pole of the kidney on the left. It directly abuts the regio n of the splenic hilum. It measures 10.0 cm. There is not a well-defined fat plane between portions o f the spleen, but I do not see that there is obvious invasion. The pancreas and gallbladder regions a ppear unremarkable. Right and left adrenal glands are normal. The right kidney is normal in size. I do not see any eviden ce for renal vein invasion. There are some small periaortic lymph nodes all subcentimeter in size. No significant mesenteric adenopathy. CT of pelvis was performed with contrast enhancement. No pelvic lymphadenopathy or mass. Prostate krzysztof cifications are present. Review of osseous structures showed no evidence of any lytic or blastic bone lesions. IMPRESSION: 1. Numerous bilateral lower lobe pulmonary nodules as described above. There is a large right pleura l effusion also seen. 2. 10.0 cm necrotic left upper pole renal mass, most compatible with renal cell carcinoma. Some smal l subcentimeter nodes are seen in this area. No signs for renal vein invasion. POS: [facility]
[2020-07-06] MEDS: HumaLOG 300 UNITS/3 ML VIAL SC PRN ×2 (12:07→16:27)
--- NOTE | 2020-07-06 12:19 | PRG ---
DATE OF SERVICE: 07/06/2020 SUBJECTIVE: is without complaints today. He did have a followup CAT scan, that shows a large left renal mass, which is consistent with renal cell carcinoma. He is resting comfortably in bed. He has been talking to the hospitalist today. OBJECTIVE: VITAL SIGNS: Temperature is 98, pulse 82, blood pressure 182/83. GENERAL: He is in no distress. LABORATORY DATA: White count is 8.4, MCV is 68 to 69 and it has been lower this admission than in the past, hemoglobin is 8.6 and stable, and platelet count 449. CAT scan reviewed with Radiology and Dr. Yuen, Pulmonology, shows a large left renal mass, there are some pulmonary nodules, which is concern for malignancy. ASSESSMENT: 1. Left renal mass with pulmonary nodules, likely renal cell carcinoma, metastatic. 2. Pleural effusion, negative for malignancy on cytology. His furniture rental consultant feels it is probably going to return. 3. He needs a urology consult and an oncology consult as this is going to be multidisciplinary treatment plan. 4. At this point in time with negative endoscopies yesterday, upper and lower, except for the Lizeth esophagus, we will sign off, just I would treat the Lizeth esophagitis for 14 days. It is likely related to immunocompromised state with his renal cell malignancy. If I can be of any further assistance in the patient's care, please do not hesitate to contact me. Job ID: [id number]
--- NOTE | 2020-07-06 13:07 | PDOC.HOSPP ---
- Subjective Subjective: Patient was seen examined at bedside. His CT scan of the abdomen came back positive for renal cell carcinoma. Pt attempt to leave AMA multiple times today; d/w specialists it's best to for him to wait to have urology and oncology evaluate him while he is here - Objective Vital Signs & Weight: Vital Signs (12 hours) Temp Pulse Resp BP Pulse Ox 07/06/20 11:59 97.3 F L 73 12 162/77 H 97 07/06/20 08:03 98.2 F 82 18 182/83 H 96 07/06/20 04:00 98.5 F 78 18 156/82 H 94 L Weight Admit Weight 203 lb 11.312 oz Weight 198 lb 3.129 oz I&O: 07/05/20 07/06/20 07/07/20 06:59 06:59 06:59 Intake Total 4000 720 Output Total 2000 Balance 1999 720 Result Diagrams: 07/05/20 03:54 07/05/20 03:54 Additional Labs: Accuchecks 07/06/20 07/06/20 07/05/20 10:52 05:55 21:03 POC Glucose 162 H 173 H 201 H 07/05/20 16:48 POC Glucose 203 H Radiology Reviewed by me: Yes EKG Reviewed by me: Yes Hospitalist ROS - Medication Medications: Active Medications Generic Name Dose Route Start Last Admin Trade Name Freq PRN Reason Stop Dose Admin Acetaminophen 650 mg 07/03/20 18:44 07/06/20 09:41 Acetaminophen 325 Mg Tab PO 650 mg Q4H PRN Administration Headache/Fever/Mild Pain (1-3) Carvedilol 25 mg 07/04/20 21:00 07/06/20 09:41 Carvedilol 25 Mg Tab PO 25 mg BID MAC Administration Famotidine 20 mg 07/04/20 09:00 07/06/20 09:41 Famotidine/Pf 20 Mg/2ml Vial SLOW IVP 20 mg DAILY MAC Administration Fluconazole 100 mg 07/06/20 09:00 07/06/20 09:41 Fluconazole 100 Mg Tab PO 100 mg DAILY MAC Administration Furosemide 20 mg 07/04/20 06:00 07/06/20 07:10 Furosemide 20 Mg/2 Ml Vial SLOW IVP Not Given 0600,1400 MAC Hydralazine HCl 25 mg 07/04/20 21:00 07/06/20 09:41 Hydralazine 25 Mg Tab PO 25 mg TID MAC Administration Insulin Human Lispro 0 units 07/03/20 19:00 07/06/20 12:07 Humalog 300 Units/3 Ml Vial SC 2 unit .MILD SLIDING SCALE PRN Administration Mild Correctional Scale - Exam General Appearance: NAD Eye: PERRL ENT: normocephalic atraumatic Neck: supple Heart: RRR Respiratory: CTAB Gastrointestinal: soft Extremities: no cyanosis Skin: normal turgor Neurological: cranial nerve grossly intact Psychiatric: normal affect, normal behavior, A&O x 3 Hosp A/P - Plan Assessment and plan: 70 years old gentleman who has significant past medical history of congestive heart failure with diastolic dysfunction, CKD 3, diabetes, hypertension, dyslipidemia, GERD, who was presented to ED with complaint of short of breath. Initial work-up including CTA, showed multiple spiculated nodules within lung, and mediastinal lymphadenopathy concerning for metastatic disease. Further workup suggestive RCC as primary Renal cell carcinoma - new dx, based on CT abd/pel --Urology and Oncology eval Multiple lung nodules concerning for metastatic disease --likely from RCC --s/p EGD/colonoscopy unrevealing Odynophagia --s/p EGD/Colonoscopy - shaniqua esophagitis, started on Diflucan. Large right pleural effusion --Status post therapeutic/diagnostic thoracocentesis. Path: no malignant cells Acute on chronic diastolic heart failure --Last Echo showed preserved EF --change to PO Lasix Diabetes type 2 --Hold Glipizide and Metformin given sporadic eating and Cr level/recent contrast study --cont ISS for now Hypertension --BP elevated, resume home meds Dyslipidemia --cont statin CKD stage 3 --recent contrast study, will rpt BMP in AM
[2020-07-06] MEDS ORDERED: Iopamidol-370 76% 500 ML 1 ML ONE (13:20)
[2020-07-06 13:37] VITALS: BMI 29.2
[2020-07-06 15:18] VITALS: BP 154/71; TEMP 98
--- NOTE | 2020-07-06 21:10 | CON ---
DATE OF CONSULTATION: 07/06/2020 REASON FOR CONSULTATION: Left renal mass. HISTORY: is a 70-year-old gentleman admitted to the hospital on 07/03/2020 with progressive dyspnea. He reached to the point that he becomes short of breath even with talking. In addition, he had right-sided chest pain. Workup since admission has included imaging, which has demonstrated multiple lesions within the lungs consistent with metastatic disease, mediastinal lymphadenopathy, a large pleural effusion that has since been drained for 2 L of fluid, and a large left renal mass. His overall health has been declining over the last several months and he claims to have lost 60 pounds over the last several months due to lack of appetite. Because of his rather severe lack of appetite, he has undergone endoscopy since admission that showed findings consistent with Lizeth of the esophagus. His breathing has improved since his right-sided evacuation of his pleural effusion. He actually states his appetite has improved a little bit today for the first time in months. PAST MEDICAL HISTORY: Type 2 diabetes mellitus, hyperlipidemia, hypertension. PAST SURGICAL HISTORY: Partial colon resection for a ruptured appendicitis. ALLERGIES: CODEINE. SOCIAL HISTORY: He lives alone. He was many years ago. His daughter lives next door and she has 3 daughters of her own. He recently quit smoking. He currently does not use alcohol or drugs to excess, but did admit to heavy drinking for several years when he was much younger. He is retired and previously worked at [employer]. MEDICATIONS: Prior to admission include: 1. Amlodipine. 2. Atenolol. 3. Lisinopril. 4. Metformin. 5. Simvastatin. 6. Glipizide. 7. Hydralazine. REVIEW OF SYSTEMS: GENERAL: Weakness, weight loss, fatigue over the last several months. RESPIRATORY: Shortness of breath associated with a large right pleural effusion. CARDIOVASCULAR: Denies angina type chest pain. GASTROINTESTINAL: Lack of appetite with severe weight loss. GENITOURINARY: Denies any voiding symptoms. NEUROLOGIC: Denies dizziness or signs or symptoms of CVA. PHYSICAL EXAMINATION: GENERAL: He is awake, alert. He is in no distress. He does cough regularly while talking. VITAL SIGNS: Temperature 98, blood pressure 154/71, pulse 74, O2 saturation 100% on room air. CHEST: Some rhonchi bilaterally. No wheezing. CARDIOVASCULAR: No murmurs auscultated. ABDOMEN: No peritoneal signs. Some fullness in the left upper quadrant with a mass noted on CT is not easily palpable. EXTREMITIES: No edema. LABORATORY DATA: Hemoglobin 8.6, hematocrit 28.4, platelets 449. Sodium 136, potassium 3.6, creatinine 1.5, BUN 17, CO2 of 25, chloride 100, glucose 142. Urine testing, no blood seen. IMAGING: Multiple lesions in bilateral lungs consistent with metastatic disease, mediastinal lymphadenopathy, large left renal mass with possible involvement of the spleen. IMPRESSION: is a 70-year-old gentleman who has findings consistent with metastatic renal cell carcinoma. He has not been seen by Oncology yet. I discussed mangement options at length including surgical therapy with subsequent systemic therapy versus systemic therapy alone and possible surgical therapy if there is response versus supportive care only. He is against anything that may result in him requiring dialysis. He states that he has been thinking about his condition at length and currently is at peace with the possibility of from his current diagnosis. He is in the mind set at this point of supportive care only. From a surgical standpoint, I think he would do quite poorly with his surgery, which would require an open approach. While there is some data to suggest increased survival rates with cytoreductive surgery prior to systemic therapy, the best results were seen in patients with excellent performance status, he does not fall into this category. He desires to be discharged from the hospital, but I have encouraged him to wait untilhe has had an opportunity to visit with the oncologist for their opinion regarding his options for systemic therapy. RECOMMENDATIONS: 1. I will be available for further discussion with the patient. 2. Await consultation by Oncology. Job ID: [id number] [id number]
--- NOTE | 2020-07-07 07:09 | CON ---
DATE OF CONSULTATION: REASON FOR CONSULTATION: Renal mass. HISTORY OF PRESENT ILLNESS: is a 70-year-old male with a past medical history of diastolic heart failure, who presented to the emergency room with 3 to 4 months history of increasing shortness of breath and 40-pound weight loss. He underwent a chest CT angio, which was negative for PE, but showed a large left pleural effusion. Dr. Yuen was consulted and performed a thoracentesis, it was negative for malignant cells. He has also been having some dysphagia, pain, and odynophagia with lack of appetite, which was contributing to his weight loss. He underwent EGD, which again was essentially normal and negative for malignancy. He eventually had an abdominal and pelvis CT performed. There was a 10 cm necrotic left upper pole renal mass. There were some small subcentimeter nodes in the area. There were also numerous bilateral lower lobe pulmonary nodules with mediastinal adenopathy, all consistent with metastatic disease. The patient has improved throughout the course of this hospitalization and is potentially ready for discharge. We were asked to see the patient regarding this new renal mass. PAST MEDICAL HISTORY: 1. Congestive heart failure. 2. Hypertension. 3. Diabetes mellitus type 2. 4. Chronic kidney disease. 5. Hyperlipidemia. PAST SURGICAL HISTORY: Appendectomy. ALLERGIES: CODEINE. HOME MEDICATIONS: 1. Amlodipine. 2. Atenolol. 3. Lisinopril. 4. Metformin. 5. Simvastatin. 6. Glipizide. 7. Hydralazine. FAMILY HISTORY: Negative for malignancies. SOCIAL HISTORY: . Occasional smoker. No alcohol or illicit drug use. REVIEW OF SYSTEMS: A 12-point review of systems is negative except for noted in HPI. PHYSICAL EXAMINATION: VITAL SIGNS: Temperature 98.0, pulse 74, respiratory rate 12, BP is 154/71, he is 100% on room air. GENERAL: This is a well-developed, well-nourished male, in no acute distress. HEENT: Normocephalic, atraumatic. Pupils are equal and reactive to light. NECK: Supple. CV: Regular rate and rhythm. LUNGS: Clear. ABDOMEN: Obese, nontender. Bowel sounds are positive. There is no hepatosplenomegaly. EXTREMITIES: No clubbing or cyanosis. SKIN: No rash. HEMATOLOGICAL: No petechiae or purpura. NEUROLOGICAL: Nonfocal. PERTINENT LABORATORY DATA AND X-RAYS: Current WBCs 8.5, hemoglobin 8.6, hematocrit 28.4, platelet count 449,000, 77% neutrophils, 12% lymphs. PT 16.7, INR is 1.3, and PTT is 44.2. Sodium 136, potassium 3.6, chloride 100, CO2 is 25, BUN is 17, creatinine 1.54, calcium 8.5, magnesium 2, bilirubin 0.7, AST is 24, ALT is 34, alkaline phosphatase is 237, creatine kinase is 27. Troponin negative. BNP is 552. Serum total protein 7.8, albumin 3.2, globulin 4.6. COVID PCR negative. ASSESSMENT: 1. Large left renal mass with pulmonary nodules consistent with metastatic disease. 2. Large left pleural effusion, negative for malignant cells. DISCUSSION: Case has been discussed with Dr. Medeiros. The patient likely has metastatic renal cell carcinoma; however, tissue biopsy is needed for confirmation. The patient may have clear cell or other rare non-clear cell, which would certainly affect treatment. Although it is unlikely that this is lymphoma, this needs to be ruled out as well. I recommend a CT-guided biopsy. Await Urology input. CT-guided biopsy could be scheduled for Thursday, although the patient appears ready for discharge. It could be scheduled in the outpatient setting. Thank you for the consult. We will follow along. Job ID: [id number]
--- NOTE | 2020-07-09 13:01 | DIS ---
DATE OF ADMISSION: 07/03/2020 DATE OF DISCHARGE: 07/06/2020 DISCHARGE DIAGNOSES: 1. Large left renal mass, likely due to renal cell carcinoma. 2. Multiple lung nodules, likely due to metastatic disease. 3. Odynophagia, status post esophagogastroduodenoscopy and colonoscopy. 4. Lizeth esophagitis. 5. Large right pleural effusion, status post thoracentesis, about 2 L removed. 6. Acute on chronic diastolic heart failure. 7. Diabetes, type 2. 8. Hypertension. 9. Dyslipidemia. 10. Chronic kidney disease, stage 3. 11. Medical noncompliance. CONSULTATIONS: 1. GI, Dr. Wilcox. 2. Oncology, Dr. Vicki Medeiros. 3. Pulmonology, Dr. Clint Yuen. 4. Urology, Dr. Baljit Tejada. PROCEDURE PERFORMED: 1. Right thoracentesis, about 2 L of fluid removed. 2. EGD and colonoscopy, performed by Dr. Wilcox on 07/05/2020, found to have Lizeth esophagitis, otherwise unremarkable. LABORATORY DATA: WBC 8.5, hemoglobin 8.6, hematocrit 28.4, platelets 449. INR 1.3. Chemistry; sodium 136, potassium 3.6, chloride 108, carbon dioxide 25, BUN 17, creatinine is 1.5. UA was negative. Pleural fluid, no malignant cell. Esophageal biopsy, positive for Lizeth esophagitis. IMAGING STUDY: Chest x-ray, possible interstitial edema or infiltrate, atherosclerosis, pleural and parenchymal changes in the right hemithorax, incompletely evaluated. CTA chest, no CT evidence of PE. Multiple bilateral lung nodules, highly suspicious for metastatic disease given the aggressive appearing and partially visualized left abdominal mass. This may be arising from the left kidney or the spleen. Mediastinal adenopathy. Large right pleural effusions and compressive atelectasis, likely accounting for the dyspnea. Atherosclerosis. CT abdomen and pelvis, numerous bilateral lower lobe pulmonary nodules as described previously. There is a large right pleural effusion also seen. 10 cm necrotic left upper pole renal mass, most compatible with renal cell carcinoma. Some small subcentimeter nodules also seen this area. No sign of renal vein invasion. HISTORY OF PRESENT ILLNESS AND BRIEF HOSPITAL COURSE: The patient is an unfortunate 70-year-old gentleman, who has significant past medical histories of diabetes, type 2; hypertension; CKD, stage 3; heart failure; dyslipidemia, who was sent from his PCP office due to worsening dyspnea and odynophagia. The patient was initially seen at [facility] and subsequently transferred to [facility]. He was ultimately admitted to Hospitalist Service. Initial workup in the ED, showed that he had large pleural effusion. For that reason, Pulmonology was consulted. The patient underwent thoracentesis, pathology negative for malignant cells. However, this showed a large abdominal mass. For that reason, GI was consulted. The patient was seen by Dr. Wilcox. Subsequently underwent EGD and colonoscopy, found that he had Lizeth esophagitis, and subsequently started on Diflucan. There was no intraluminal mass for biopsy. Followup CT abdomen and pelvis, showed that he had a 10 cm left renal mass consistent with renal cell carcinoma as well as metastatic disease given pulmonary nodule noted on initial CTA. Multiple specialists were consulted including Pulmonology, GI, Oncology, and Urology. The patient was seen by Dr. Tejada as well as Ms. Enedina Toledo from Oncology service, who discussed different treatment options with the patient. It should be noted that during his hospital course, the patient had multiple attempts to sign out AMA, myself and other specialists as well as my colleagues, had multiple discussions with the patient. He initially agreed to stay, but ultimately he signed out AMA overnight. The patient is aware of his cancer, and further treatment and further workup is needed and required to be in the hospital. I have discussed with the patient multiple times regarding the severity of his illness. He verbalized understanding and initially agreed to stay. However, the patient was informed and refused care. The patient is fully aware of the risks of leaving AMA. The patient is fully competent of making his own decision. The patient was advised to seek medical attention if there is change in mental status or change in his decision. The patient again, vocalized understanding. He was ultimately signed out AMA overnight. DISPOSITION: The patient left VEST. Job ID: [id number]
--- NOTE | 2020-07-11 16:54 | EKG ---
Test Reason : SOB Blood Pressure : / mmHG Vent. Rate : 089 BPM Atrial Rate : 089 BPM P-R Int : 148 ms QRS Dur : 122 ms QT Int : 396 ms P-R-T Axes : 027 -46 006 degrees QTc Int : 481 ms Normal sinus rhythm Right bundle branch block Left anterior fascicular block Bifascicular block Septal infarct , age undetermined Abnormal ECG Confirmed by JOHN ANDREWS, ARMANDO ([id number]), news copy editor ELVIA SCOTT ([id number]) on 07/11/2020 4:53:47 PM Referred By: JOHN Confirmed By:ARMANDO LOPEZ MD
== END 2020-07-06 19:45 | disposition left against medical advice (07) | DRG 686 ==
LOC: ERS 15:13 → 2NO 17:32
PROVIDERS: ADMIT Student in an Organized Health Care Education/Training Program; ATTEND Student in an Organized Health Care Education/Training Program
PROC: 0W993ZZ Drainage of Right Pleural Cavity, Percutaneous Approach (ICD-10-PCS; principal; 2020-07-04)
PROC: 0DB58ZX Excision of Esophagus, Via Natural or Artificial Opening Endoscopic, Diagnostic (ICD-10-PCS; 2020-07-05)
PROC: 0DJD8ZZ Inspection of Lower Intestinal Tract, Via Natural or Artificial Opening Endoscopic (ICD-10-PCS; 2020-07-05)
DX: C64.2 Malignant neoplasm of left kidney, except renal pelvis (principal); I50.33 Acute on chronic diastolic (congestive) heart failure; I13.0 Hypertensive heart and chronic kidney disease with heart failure and stage 1 through stage 4 chronic kidney disease, or unspecified chronic kidney disease; J90 Pleural effusion, not elsewhere classified; B37.81 Candidal esophagitis; C78.00 Secondary malignant neoplasm of unspecified lung; E78.5 Hyperlipidemia, unspecified; R13.10 Dysphagia, unspecified; K21.9 Gastro-esophageal reflux disease without esophagitis; K64.8 Other hemorrhoids; E11.22 Type 2 diabetes mellitus with diabetic chronic kidney disease; R91.1 Solitary pulmonary nodule; N18.30 Chronic kidney disease, stage 3 unspecified; Z20.828 Contact with and (suspected) exposure to other viral communicable diseases; R59.1 Generalized enlarged lymph nodes; Z90.49 Acquired absence of other specified parts of digestive tract; Z87.891 Personal history of nicotine dependence; Z88.6 Allergy status to analgesic agent; Z79.899 Other long term (current) drug therapy
CPT/HCPCS: 36415; 36416; 71045; 71275; 74177; 80048; 80053; 81003; 81015; 82150; 82550; 82607; 82746; 82945; 83605; 83615; 83690; 83735; 83880; 83986; 84157; 84478; 84484; 85025; 85060; 85610; 85730; 87040; 87070; 87116; 87205; 87206; 87635; 88112; 88305; 88312; 88313; 89051; 93005; 96374; J1940; J2704; Q9967; S0028; U0003

== ENCOUNTER 2020-07-25 10:30 | Inpatient (IN) | payer MEDICARE, OTHER ==
[2020-07-25 11:10] LABS: #Monocytes 0.7 thou/uL (0.11-0.59); #Neutrophils 7.2 thou/uL (1.40-6.50); %Basophils 0.2 % (0.0-1.0); %Eosinophils 0.3 % (0.0-10.0); %Lymphocytes 11.6 % (21.0-51.0); %Monocytes 8.1 % (0.0-10.0); %Neutrophils 79.9 % (42.0-75.0); Hemoglobin 8.6 g/dL (14.0-18.0); Mean Corpuscular HGB CONC 28.8 g/dL (32.0-36.0); Mean Corpuscular Hemoglobin 19.7 pg (27.0-31.0); Mean Corpuscular Volume 68.4 fL (78.0-98.0); Mean Platelet Volume 8.3 fL (7.4-10.4); Platelet Count 459 thou/uL (130-400); RBC Distribution Width 17.8 % (11.5-14.5); Red Blood Cell (RBC) Count 4.37 mill/uL (4.70-6.10)
[2020-07-25 11:31] LABS: ALT (SGPT) 22 U/L (8-55); AST (SGOT) 32 U/L (5-34); Albumin 2.8 g/dL (3.4-4.8); Alkaline Phosphatase 178 U/L (40-110); Anion Gap 15 mmol/L (10-20); BUN (Urea Nitrogen) 20 mg/dL (8.4-25.7); Bilirubin, Total 0.5 mg/dL (0.2-1.2); Calc. Creatinine Clearance 0 mL/min (70-130); Calcium 8.9 mg/dL (7.8-10.44); Carbon Dioxide 21 mmol/L (23-31); Chloride 106 mmol/L (98-107); Estimated GFR-MDRD 53; Globulin 4.6 g/dL (2.4-3.5); Glucose 110 mg/dL (80-115); Potassium 4.1 mmol/L (3.5-5.1); Protein, Total 7.4 g/dL (5.8-8.1); Sodium 138 mmol/L (136-145)
[2020-07-25 11:35] LABS: Hypochromia MODERATE=16-30 cells (100X) (0-5/hpf); MDiff Complete? YES; Microcytosis MODERATE=15-30 cells (100X) (0-5/hpf); Platelet Morphology Comment Appears Increased; Polychromasia SLIGHT = 2-3 cells (100X) (0-2/hpf)
[2020-07-25 11:54] LABS: CKMB 1.8 ng/mL (0-6.6)
[2020-07-25 14:52] LABS: Troponin I 0.154 ng/mL (< 0.028)
[2020-07-25] MEDS ORDERED: Aspirin Chewable 81 MG TAB ONE (15:53)
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
[2020-07-25] MEDS ORDERED: Guaifenesin DM 100-10/5 ML UDCUP PO PRN (17:18)
[2020-07-25] MEDS ORDERED: Ondansetron PF 4 MG/2 ML Vial IVP PRN (17:18)
[2020-07-25] MEDS ORDERED: Dextrose 5% in Water 1,000 ML IV PRN (17:18)
[2020-07-25] MEDS ORDERED: Ondansetron ODT 4 MG TAB PO PRN (17:18)
[2020-07-25] MEDS ORDERED: Dextrose 50% Abboject 50 ML SYRINGE SLOW IVP PRN (17:18)
[2020-07-25] MEDS ORDERED: Acetaminophen 650 MG Suppository PR PRN (17:18)
[2020-07-25] MEDS ORDERED: Senokot S 8.6-50 MG TAB PO PRN (17:18)
[2020-07-25 17:57] VITALS: BMI 28.8
[2020-07-25 18:52] LABS: Troponin I 0.152 ng/mL (< 0.028)
[2020-07-25] MEDS: Morphine 4 MG/ML VIAL SLOW IVP SCH ×3 (18:58→22:00)
[2020-07-25] MEDS: hydrALAZINE 25 MG TAB PO SCH (20:23)
[2020-07-25] MEDS: glipiZIDE 10 MG TAB PO SCH (20:23)
[2020-07-25] MEDS: Carvedilol 6.25 MG TAB PO SCH (20:23)
[2020-07-25] MEDS: Famotidine 20 MG TAB PO SCH (20:24)
[2020-07-25] MEDS: metFORMIN 500 MG TAB PO SCH (20:25)
[2020-07-26] MEDS: Morphine 4 MG/ML VIAL SLOW IVP SCH ×10 (02:00→20:43)
--- NOTE | 2020-07-26 04:30 | PDOC.EVN ---
Event Note - Event Note Event Note: called for ?some slurring and headache. Pt is A&O x 3 speech is clear, he say he has heache and weakness of l side for weeks/ ?renal cell Ca w mets, R/O Brain mets vs cva. will get CT brain
[2020-07-26 04:36] LABS: INR-International Normal Ratio 1.3; PTT 43.3 sec (22.9-36.1); Prothrombin Time 16.2 sec (12.0-14.7)
[2020-07-26 04:39] LABS: #Lymphocytes 1.3 thou/uL (1.20-3.40); #Monocytes 0.9 thou/uL (0.11-0.59); %Basophils 0.3 % (0.0-1.0); %Eosinophils 0.4 % (0.0-10.0); %Lymphocytes 15.8 % (21.0-51.0); %Monocytes 11.3 % (0.0-10.0); %Neutrophils 72.1 % (42.0-75.0); Hemoglobin 7.9 g/dL (14.0-18.0); Mean Corpuscular HGB CONC 29.2 g/dL (32.0-36.0); Mean Corpuscular Hemoglobin 20.2 pg (27.0-31.0); Mean Corpuscular Volume 69.3 fL (78.0-98.0); Mean Platelet Volume 8.1 fL (7.4-10.4); Platelet Count 401 thou/uL (130-400); RBC Distribution Width 17.7 % (11.5-14.5); Red Blood Cell (RBC) Count 3.89 mill/uL (4.70-6.10); White Blood Cell (WBC) Count 8.3 thou/uL (4.8-10.8)
[2020-07-26 04:50] LABS: ALT (SGPT) 23 U/L (8-55); AST (SGOT) 22 U/L (5-34); Albumin 2.7 g/dL (3.4-4.8); Alkaline Phosphatase 170 U/L (40-110); Anion Gap 14 mmol/L (10-20); BUN (Urea Nitrogen) 20 mg/dL (8.4-25.7); Bilirubin, Total 0.5 mg/dL (0.2-1.2); CK (CPK) 47 U/L (30-200); Calc. Creatinine Clearance 67 mL/min (70-130); Calcium 8.5 mg/dL (7.8-10.44); Carbon Dioxide 21 mmol/L (23-31); Chloride 108 mmol/L (98-107); Estimated GFR-MDRD 56; Glucose 68 mg/dL (80-115); Potassium 3.5 mmol/L (3.5-5.1); Protein, Total 6.7 g/dL (5.8-8.1); Sodium 139 mmol/L (136-145)
[2020-07-26 05:12] LABS: CKMB 1.1 ng/mL (0-6.6)
[2020-07-26] MEDS ORDERED: Dexamethasone 10 MG in Sodium Chloride 0.9% 50 ML IVPB SCH (06:00)
--- NOTE | 2020-07-26 07:57 | CT ---
PRELIMINARY REPORT/[facility]/EMERGENCY AFTER HOURS PROCEDURE This report was discussed with Kalyn Jefferson RN by Antonette Aviles on Jul 26, 2020 04:48:00 CDT. Addendum electronically signed by Antonette Aviles on July 26, 2020 4:48:26 AM CDT EXAM: CT Head Without Intravenous Contrast. CLINICAL HISTORY: Acute left sided weakness TECHNIQUE: Axial computed tomography images of the head/brain without intravenous contrast. COMPARISON: None provided. FINDINGS: BRAIN: Several areas of abnormal parenchymal attenuation in the brain are noted in both supratentorial geni rtment and posterior fossa. These areas of abnormal attenuation are preferential in the white matter compatible with vasogenic edema, probably secondary to numerous intraparenchymal metastasis wh ich are poorly defined and visualized on this noncontrast CT study. There is some mass-effect on the tectum and aqueduct associated with a right cerebellar lesion. Ther e is no hemorrhage. No extra-axial collections. VENTRICLES: No hydrocephalus. ORBITS: The orbits are unremarkable. SINUSES AND MASTOIDS: The paranasal sinuses and mastoid air cells are clear. SOFT TISSUES: No significant facial or scalp soft tissue swelling evident. No radiopaque foreign body is seen. BONES: No acute skull fracture. IMPRESSION: Numerous abnormalities within the brain presumably secondary to metastatic disease. Multiple inflamm atory foci are much less likely. Follow-up MRI with gadolinium is recommended as soon as possible. Postcontrast CT may add additional information until then. ELECTRONICALLY SIGNED BY: Danis Venegas MD Jul 26, 2020 4:39:41 AM CDT This report is intended for review by the ordering physician only, in accordance of law. If you recei ve this report in error, please call [facility] at [phone]. FINAL REPORT HEAD CT WITHOUT CONTRAST: 07/26/2020 HISTORY: Acute left-sided weakness. FINDINGS: I agree with the preliminary report. Imaged paranasal sinuses and mastoid air cells are well-aerated. No displaced calvarial fracture is seen. There are numerous scattered areas of hypodensity involving the subcortical and deep white matter whi ch include the posterior parieto-occipital regions, the posterior lateral aspect of the right temporal lobe inferiorly, the medial left temporal lobe near the temporal horn of the left lateral ve ntricle, and in the right frontal region. These findings suggest vasogenic edema, likely on the basis of underlying intracranial lesions associated with metastatic disease. Within the posterior fos sa there is extensive edema within the right cerebellar hemisphere with associated prominent mass effect within the right aspect of the posterior fossa exerting mass effect on the fourth ventricle wh ich appears obliterated inferiorly. No intracranial hemorrhage is evident. IMPRESSION: Numerous areas of prominent vasogenic edema suggesting underlying intracranial metastatic disease. Th is includes a lesion within the right cerebellar hemisphere with prominent mass effect on the fourth ventricle. Neurosurgical consultation suggested. Dr. Mason made aware via phone by Dr. Hunt at 7:55 AM on 07/26/2020. Code CR Transcribed Date/Time: 07/26/2020 8:05 AM
--- NOTE | 2020-07-26 08:03 | PDOC.HOSPP ---
- Subjective Encounter Date: 07/26/20 Encounter Time: 10:00 Subjective: Patient had a little confusion this AM. Code was called but he cleared right away. CT head done at that time showed multiple masses in the brain with edema and midline shift. He was put on Dexamethasone. Patient back to his baseline at time of admission when I saw him. We discussed his diagnosis and he states he wants to be DNAR, likely doesn't want any treatment, not sure where to go from here though. I discussed possibility of hospice with him and he is going to discuss with his family and with palliative care. - Objective Vital Signs & Weight: Vital Signs (12 hours) Temp Pulse Pulse Pulse Resp Resp BP 07/26/20 04:09 91 20 07/26/20 04:06 91 82 20 07/26/20 03:48 98.5 F 78 20 07/26/20 00:11 98.5 F 78 22 H 07/25/20 20:23 79 175/84 H 07/25/20 20:16 98.4 F 79 26 H BP BP BP Pulse Ox Pulse Ox Pulse Ox 07/26/20 04:09 192/89 H 95 07/26/20 04:06 192/89 H 182/89 H 95 94 L 07/26/20 03:48 157/67 H 93 L 07/26/20 00:11 166/78 H 95 07/25/20 20:23 07/25/20 20:16 179/81 H 95 Weight Weight 195 lb I&O: 07/25/20 07/26/20 07/27/20 06:59 06:59 06:59 Intake Total 240 Balance 240 Result Diagrams: 07/26/20 04:18 07/26/20 04:18 Additional Labs: Accuchecks 07/26/20 07/25/20 07/25/20 04:10 20:34 17:44 POC Glucose 70 148 H 104 H Hospitalist ROS - Review of Systems Constitutional: reports: weakness. denies: fever, chills Respiratory: denies: cough, shortness of breath Cardiovascular: denies: chest pain, palpitations Gastrointestinal: denies: nausea, vomiting, abdominal pain Neurological: reports: weakness Other: left leg significantly weak when tried to stand - Medication Medications: Active Medications Generic Name Dose Route Start Last Admin Trade Name Freq PRN Reason Stop Dose Admin Carvedilol 25 mg 07/25/20 21:00 07/25/20 20:23 Carvedilol 6.25 Mg Tab PO 25 mg BID MAC Administration Famotidine 20 mg 07/25/20 21:00 07/25/20 20:24 Famotidine 20 Mg Tab PO 20 mg BID MAC Administration Glipizide 10 mg 07/25/20 21:00 07/25/20 20:23 Glipizide 10 Mg Tab PO 10 mg BID MAC Administration Hydralazine HCl 25 mg 07/25/20 21:00 07/25/20 20:23 Hydralazine 25 Mg Tab PO 25 mg TID MAC Administration Metformin HCl 500 mg 07/25/20 21:00 07/25/20 20:25 Metformin 500 Mg Tab PO 500 mg BID MAC Administration Morphine Sulfate 4 mg 07/25/20 18:00 07/26/20 07:43 Morphine 4 Mg/Ml Vial SLOW IVP Not Given Q2HR MAC - Exam General Appearance: NAD, awake alert ENT: moist mucosa Heart: RRR, no murmur, no gallops, no rubs Respiratory: CTAB, no wheezes, no rales, no ronchi Gastrointestinal: soft, non-tender, non-distended, normal bowel sounds Neurological - other findings: left facial droop, left leg weakness Psychiatric: normal affect, normal behavior, A&O x 3 Hosp A/P (1) Brain metastases Code(s): C79.31 - SECONDARY MALIGNANT NEOPLASM OF BRAIN Status: Acute (2) 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 Code(s): C64.9 - MALIGNANT NEOPLASM OF UNSP KIDNEY, EXCEPT RENAL PELVIS; C78.00 - SECONDARY MALIGNANT NEOPLASM OF UNSPECIFIED LUNG Status: Chronic (3) Chronic diastolic CHF (congestive heart failure) Code(s): I50.32 - CHRONIC DIASTOLIC (CONGESTIVE) HEART FAILURE Status: Chronic (4) Elevated troponin Code(s): R77.8 - OTHER SPECIFIED ABNORMALITIES OF PLASMA PROTEINS Status: Acute (5) Diabetes mellitus type 2 in nonobese Code(s): E11.9 - TYPE 2 DIABETES MELLITUS WITHOUT COMPLICATIONS Status: Chronic (6) CKD (chronic kidney disease), stage III Code(s): N18.3 - CHRONIC KIDNEY DISEASE, STAGE 3 (MODERATE) * DO NOT USE * Status: Chronic - Plan Patient had some slurred speech this AM. Hadn't had his MRI yet, so CT brain done. Showing multiple metastatic lesions including one pressing on 4th ventricle. Started on dexamethasone. Will discuss with patient home on hospice given previous wished vs. consultation of neurosurgery and oncology. Patient leaning to former but needs to discuss with family. Palliative care consulted.
[2020-07-26] MEDS: Famotidine 20 MG TAB PO SCH ×2 (08:50→20:41)
[2020-07-26] MEDS: Acetaminophen 325 MG TAB PO PRN (08:50)
[2020-07-26] MEDS: metFORMIN 500 MG TAB PO SCH ×2 (08:50→20:41)
[2020-07-26] MEDS: Carvedilol 6.25 MG TAB PO SCH ×2 (08:50→20:41)
[2020-07-26] MEDS: Lisinopril 20 MG TAB PO SCH (08:51)
[2020-07-26] MEDS: glipiZIDE 10 MG TAB PO SCH ×2 (08:51→20:41)
[2020-07-26] MEDS: hydrALAZINE 25 MG TAB PO SCH ×3 (08:51→20:42)
[2020-07-26] MEDS: Furosemide 20 MG TAB PO SCH (08:51)
[2020-07-26] MEDS ORDERED: FLU VACC QS2020-21(65YR UP)/PF 240 MCG/0.7 ML SYRINGE IM ONE (09:00)
[2020-07-26] MEDS ORDERED: Enoxaparin Sodium 40 MG/0.4 ML SYRINGE SC SCH (09:00)
--- NOTE | 2020-07-26 10:19 | MRI ---
MRI of thebrain with and without contrast: 07/26/2020 COMPARISON:Head CT performed 07/26/2020 HISTORY:Altered mental status with left-sided weakness TECHNIQUE: Multiplanar multisequence MR imaging of thebrain with and without contrast Findings:The diffusion weighted imaging demonstrates a punctate focus of increased signal intensity w ithin the posterior aspect of the left temporal lobe on image 37 measuring 2 mm and within the posterior aspect of the left occipital lobe measuring 4 mm on image 37. There are a few scattered foc i of increased signal intensity on the diffusion weighted imaging in the periventricular white matter posterior to the body of the left lateral ventricle measuring up to 5 mm. A similar punctate f ocus of increased signal on the diffusion weighted imaging noted near the vertex anteriorly on the right and in the region of the thalamus on the left. These foci of increased signal intensity suggest areas of punctate acute infarction. However, there is evidence of extensive intracranial intra-axial metastatic disease with numerous enhancing lesions with associated vasogenic edema bilate rally. There are numerous enhancing lesions within the right cerebellar hemisphere, the largest measuring up to approximately 1.8 cm causing severe vasogenic edema within the posterior fossa/right cerebellar hemisphere with mass effect on a fourth ventricle which is obliterated inferiorly. There is right to left midline shift within the posterior fossa. There are multiple bilateral enhancing occipital lesions with adjacent prominent vasogenic edema, loni suring up to 1.2 cm on the right. There are multiple enhancing lesions in the temporal regions bilaterally measuring up to 6 mm within the medial posterior left temporal lobe and up to 6 mm in the posterior right temporal lobe. There are multiple bilateral frontal lesions, right greater than left, superiorly and posteriorly as well as within the anterior right frontal region. There is no steven tricular enlargement at this time. No supratentorial midline shift is seen. There is partial opacification of the mastoid air cells on the left. There is extension of the cerebellar tonsils into the region of the foramen magnum which is likely se condary to a degree of downward herniation associated with edema from the above-described intracranial masses. A degree of a pre-existing urinary 1 malformation cannot be excluded. The axial gradient echo imaging demonstrates no evidence for intracranial hemorrhage. IMPRESSION:Numerous supratentorial and infratentorial enhancing intra-axial lesions consistent with e xtensive metastatic disease. This includes numerous lesions within the right cerebellar hemisphere causing significant vasogenic edema with mass effect, obliteration of the fourth ventricle, downward extension of the cerebellar tonsils, and right to left midline shift within the posterior fossa. Findings were already discussed with Dr. Mason on the morning of 07/26/[address] A gain, neurosurgical consultation is advised given the degree of mass effect within the posterior fossa. Scattered areas of increased signal intensity on the diffusion weighted imaging suggests the possibil ity of small bilateral acute infarctions. A degree of this signal intensity on the diffusion weighted imaging could be related to tiny intracranial metastatic foci.
[2020-07-26 13:16] LABS: SARS-CoV-2 MS2 Positive; SARS-CoV-2 N Gene Negative; SARS-CoV-2 S Gene Negative; SARS-CoV-2 by NAA Not Detected (NotDetected); SARS-CoV-2 orf1ab Negative
[2020-07-26] MEDS ORDERED: Magnevist 469MG/ML 20 ML VIAL ONE (15:17)
--- NOTE | 2020-07-26 15:50 | PDOC.FMACP ---
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 The diagnosis, prognosis and goals of care were discussed. Appropriate forms and documentation to accomplish the goals of care were discussed. All questions were answered. elected to complete an MPOA and confirmed DNAR status. He is not currently stating that he would desire to pursue aggressive therapies/treatments. Will follow up to readdress Directive to physician and OOHDNAR. The Palliative Care Team will be engaged to assist with completion of any outstanding forms that are needed. Please refer to Palliative Care notes in note section. Communicated with Dr Mason. Time Spent (mins): 15
[2020-07-26] MEDS ORDERED: Lorazepam 2 MG/ML VIAL ONE (16:07)
[2020-07-26] MEDS ORDERED: Lorazepam 2 MG/ML VIAL SLOW IVP SCH (18:00)
[2020-07-26] MEDS ORDERED: Haloperidol Lactate 5 MG/ML VIAL SLOW IVP PRN (18:10)
[2020-07-26] MEDS ORDERED: Haloperidol Lactate 5 MG/ML VIAL IM PRN (20:52)
[2020-07-27] MEDS: Morphine 4 MG/ML VIAL SLOW IVP SCH ×7 (01:05→11:09)
--- NOTE | 2020-07-27 07:46 | PDOC.HOSPP ---
- Subjective Encounter Date: 07/27/20 Encounter Time: 09:00 Subjective: Patient became more confused and agitated yesterday. Less oriented though knew he was in a hospital. Demanding to go home. Tried to ambulate out of his room. Very unsteady gait. Patient eventually was able to be returned to his room once his granddaughters arrived. Eventually had to be given Ativan, later needed restraints. Patient sleeping when I went in the room this morning. No complaints to the nurse. - Objective Vital Signs & Weight: Vital Signs (12 hours) Temp Pulse Resp BP BP Pulse Ox 07/27/20 07:14 97.7 F 69 20 131/61 96 07/27/20 04:00 97.8 F 71 16 155/67 H 97 07/27/20 00:52 77 18 147/77 H 96 07/26/20 20:42 83 179/79 H 07/26/20 20:41 179/79 H 07/26/20 20:25 95 07/26/20 19:47 98.1 F 83 20 169/80 H 95 Weight Admit Weight 195 lb Weight 195 lb I&O: 07/26/20 07/27/20 07/28/20 06:59 06:59 06:59 Intake Total 640 Output Total 200 202 Balance 440 -202 Result Diagrams: 07/26/20 04:18 07/26/20 04:18 Additional Labs: Accuchecks 07/26/20 07/26/20 20:39 13:05 POC Glucose 204 H 69 L Hospitalist ROS - Review of Systems ROS unobtainable: due to mental status - Medication Medications: Active Medications Generic Name Dose Route Start Last Admin Trade Name Claude PRN Reason Stop Dose Admin Acetaminophen 650 mg 07/25/20 17:18 07/26/20 08:50 Acetaminophen 325 Mg Tab PO 650 mg Q4H PRN Administration Headache/Fever/Mild Pain (1-3) Carvedilol 25 mg 07/25/20 21:00 07/26/20 20:41 Carvedilol 6.25 Mg Tab PO 25 mg BID MAC Administration Famotidine 20 mg 07/25/20 21:00 07/26/20 20:41 Famotidine 20 Mg Tab PO 20 mg BID MAC Administration Furosemide 20 mg 07/26/20 09:00 07/26/20 08:51 Furosemide 20 Mg Tab PO 20 mg DAILY MAC Administration Glipizide 10 mg 07/25/20 21:00 07/26/20 20:41 Glipizide 10 Mg Tab PO 10 mg BID MAC Administration Hydralazine HCl 25 mg 07/25/20 21:00 07/26/20 20:42 Hydralazine 25 Mg Tab PO 25 mg TID MAC Administration Lisinopril 20 mg 07/26/20 09:00 07/26/20 08:51 Lisinopril 20 Mg Tab PO 20 mg DAILY MAC Administration Metformin HCl 500 mg 07/25/20 21:00 07/26/20 20:41 Metformin 500 Mg Tab PO 500 mg BID MAC Administration Morphine Sulfate 4 mg 07/25/20 18:00 07/27/20 07:26 Morphine 4 Mg/Ml Vial SLOW IVP Not Given Q2HR MAC - Exam General Appearance: NAD General - other findings: Patient sleeping comfortably Heart: RRR Respiratory: no wheezes, normal chest expansion, no tachypnea Neurological - other findings: left facial droop Musculoskeletal - other findings: weakness especially in LLE Psychiatric - other findings: sleeping currently Hosp A/P (1) Brain metastases Code(s): C79.31 - SECONDARY MALIGNANT NEOPLASM OF BRAIN Status: Acute (2) 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 Code(s): C64.9 - MALIGNANT NEOPLASM OF UNSP KIDNEY, EXCEPT RENAL PELVIS; C78.00 - SECONDARY MALIGNANT NEOPLASM OF UNSPECIFIED LUNG Status: Chronic (3) Chronic diastolic CHF (congestive heart failure) Code(s): I50.32 - CHRONIC DIASTOLIC (CONGESTIVE) HEART FAILURE Status: Chronic (4) Elevated troponin Code(s): R77.8 - OTHER SPECIFIED ABNORMALITIES OF PLASMA PROTEINS Status: Acute (5) Diabetes mellitus type 2 in nonobese Code(s): E11.9 - TYPE 2 DIABETES MELLITUS WITHOUT COMPLICATIONS Status: Chronic (6) CKD (chronic kidney disease), stage III Code(s): N18.3 - CHRONIC KIDNEY DISEASE, STAGE 3 (MODERATE) * DO NOT USE * Status: Chronic - Plan Patient clearly stated before becoming more confused that he didn't want anything done for his cancer. He just wanted to return home to his family for the remainder of his days. Daughter and granddaughters state that they don't think they can take care of him at home, especially since they can't be there 24 hours per day. Case management and palliative care working with family to determine where to go on hospice.
[2020-07-27] MEDS: Carvedilol 6.25 MG TAB PO SCH ×2 (10:14→20:28)
[2020-07-27] MEDS: Lisinopril 20 MG TAB PO SCH (10:15)
[2020-07-27] MEDS: Dexamethasone 4 MG TAB PO SCH (10:15)
[2020-07-27] MEDS: hydrALAZINE 25 MG TAB PO SCH ×3 (10:15→20:28)
[2020-07-27] MEDS: glipiZIDE 10 MG TAB PO SCH ×2 (10:15→20:28)
[2020-07-27] MEDS: Famotidine 20 MG TAB PO SCH ×2 (10:15→20:28)
[2020-07-27] MEDS: Furosemide 20 MG TAB PO SCH (10:15)
[2020-07-27] MEDS: metFORMIN 500 MG TAB PO SCH ×2 (10:16→20:28)
[2020-07-27] MEDS ORDERED: Morphine 4 MG/ML VIAL SLOW IVP PRN (11:21)
[2020-07-27] MEDS: HumaLOG 300 UNITS/3 ML VIAL SC PRN ×2 (17:02→20:27)
[2020-07-27] MEDS: Acetaminophen 325 MG TAB PO PRN (22:43)
--- NOTE | 2020-07-28 07:20 | PDOC.HOSPP ---
- Subjective Encounter Date: 07/28/20 Encounter Time: 10:00 Subjective: Patient reports persistent weakness in LLE. No other complaints. Awaiting placement. No further issues with him trying to leave. - Objective Vital Signs & Weight: Vital Signs (12 hours) Temp Pulse Resp BP BP Pulse Ox 07/28/20 04:00 97.6 F 73 18 161/72 H 99 07/28/20 00:00 97.5 F L 75 20 162/76 H 99 07/27/20 20:28 80 179/79 H 07/27/20 20:00 95.9 F L 84 20 175/81 H 96 Weight Admit Weight 195 lb Weight 195 lb I&O: 07/27/20 07/28/20 07/29/20 06:59 06:59 06:59 Intake Total 540 Output Total 202 Balance -202 540 Result Diagrams: 07/26/20 04:18 07/26/20 04:18 Additional Labs: Accuchecks 07/28/20 07/27/20 06:26 03:19 POC Glucose 76 124 H Hospitalist ROS - Review of Systems Constitutional: denies: fever, chills Respiratory: denies: cough, shortness of breath Cardiovascular: denies: chest pain, palpitations Gastrointestinal: denies: nausea, vomiting, abdominal pain Neurological: reports: weakness - Medication Medications: Active Medications Generic Name Dose Route Start Last Admin Trade Name Freq PRN Reason Stop Dose Admin Acetaminophen 650 mg 07/25/20 17:18 07/27/20 22:43 Acetaminophen 325 Mg Tab PO 650 mg Q4H PRN Administration Headache/Fever/Mild Pain (1-3) Carvedilol 25 mg 07/25/20 21:00 07/27/20 20:28 Carvedilol 6.25 Mg Tab PO 25 mg BID MAC Administration Dexamethasone 4 mg 07/27/20 08:00 07/27/20 10:15 Dexamethasone 4 Mg Tab PO 4 mg QAM-WM MAC Administration Famotidine 20 mg 07/25/20 21:00 07/27/20 20:28 Famotidine 20 Mg Tab PO 20 mg BID MAC Administration Furosemide 20 mg 07/26/20 09:00 07/27/20 10:15 Furosemide 20 Mg Tab PO 20 mg DAILY MAC Administration Glipizide 10 mg 07/25/20 21:00 10/23/20 20:28 Glipizide 10 Mg Tab PO 10 mg BID MAC Administration Hydralazine HCl 25 mg 07/25/20 21:00 07/27/20 20:28 Hydralazine 25 Mg Tab PO 25 mg TID MAC Administration Insulin Human Lispro 0 units 07/25/20 17:18 07/27/20 17:02 Humalog 300 Units/3 Ml Vial SC 4 unit .MILD SLIDING SCALE PRN Administration Mild Correctional Scale Insulin Human Lispro 0 units 07/25/20 17:18 07/27/20 20:27 Humalog 300 Units/3 Ml Vial SC 3 units .BEDTIME SLIDING SC PRN Administration Bedtime Correctional Scale Lisinopril 20 mg 07/26/20 09:00 07/27/20 10:15 Lisinopril 20 Mg Tab PO 20 mg DAILY MAC Administration Metformin HCl 500 mg 07/25/20 21:00 07/27/20 20:28 Metformin 500 Mg Tab PO 500 mg BID MAC Administration - Exam General Appearance: NAD, awake alert ENT: moist mucosa Heart: RRR, no murmur, no gallops, no rubs Respiratory: CTAB, no wheezes, no rales, no ronchi Gastrointestinal: soft, non-tender, non-distended, normal bowel sounds Neurological - other findings: left facial droop Psychiatric: normal affect, normal behavior, oriented to person, oriented to place. 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 Code(s): C64.9 - MALIGNANT NEOPLASM OF UNSP KIDNEY, EXCEPT RENAL PELVIS; C78.00 - SECONDARY MALIGNANT NEOPLASM OF UNSPECIFIED LUNG Status: Chronic (3) Chronic diastolic CHF (congestive heart failure) Code(s): I50.32 - CHRONIC DIASTOLIC (CONGESTIVE) HEART FAILURE Status: Chronic (4) Elevated troponin Code(s): R77.8 - OTHER SPECIFIED ABNORMALITIES OF PLASMA PROTEINS Status: Acute (5) Diabetes mellitus type 2 in nonobese Code(s): E11.9 - TYPE 2 DIABETES MELLITUS WITHOUT COMPLICATIONS Status: Chroni c (6) CKD (chronic kidney disease), stage III Code(s): N18.3 - CHRONIC KIDNEY DISEASE, STAGE 3 (MODERATE) * DO NOT USE * Status: Chronic - Plan Patient clearly stated before becoming more confused that he didn't want anything done for his cancer. He just wanted to return home to his family for the remainder of his days. Daughter and granddaughters state that they don't think they can take care of him at home, especially since they can't be there 24 hours per day. Case management and palliative care working with family to determine where to go on hospice.
[2020-07-28] MEDS: metFORMIN 500 MG TAB PO SCH ×2 (09:33→20:02)
[2020-07-28] MEDS: hydrALAZINE 25 MG TAB PO SCH ×3 (09:33→20:02)
[2020-07-28] MEDS: Carvedilol 6.25 MG TAB PO SCH ×2 (09:33→20:01)
[2020-07-28] MEDS: Furosemide 20 MG TAB PO SCH (09:34)
[2020-07-28] MEDS: Famotidine 20 MG TAB PO SCH ×2 (09:34→20:01)
[2020-07-28] MEDS: Dexamethasone 4 MG TAB PO SCH (09:34)
[2020-07-28] MEDS: glipiZIDE 10 MG TAB PO SCH ×2 (09:34→20:01)
[2020-07-28] MEDS: Lisinopril 20 MG TAB PO SCH (09:34)
[2020-07-28] MEDS: HumaLOG 300 UNITS/3 ML VIAL SC PRN ×3 (13:04→20:06)
--- NOTE | 2020-07-29 07:19 | PDOC.HOSPP ---
- Subjective Encounter Date: 07/29/20 Encounter Time: 09:40 Subjective: Patient upset at still being stuck in the hospital. Wants to go home with daughter and granddaughters or if they can't take care of him, then with his sister. - Objective Vital Signs & Weight: Vital Signs (12 hours) Temp Pulse Resp BP BP Pulse Ox 07/28/20 20:02 82 162/74 H 07/28/20 20:01 162/74 H 07/28/20 20:00 97.8 F 81 16 162/74 H 96 Weight Admit Weight 195 lb Weight 195 lb I&O: 07/28/20 07/29/20 07/30/20 06:59 06:59 06:59 Intake Total 540 1330 Balance 540 1330 Result Diagrams: 07/26/20 04:18 07/26/20 04:18 Additional Labs: Accuchecks 07/28/20 07/28/20 07/28/20 20:08 16:56 12:00 POC Glucose 335 H 218 H 211 H 07/27/20 07/27/20 12:50 03:19 POC Glucose 273 H 124 H Hospitalist ROS - Review of Systems ROS unobtainable: due to mental status - Medication Medications: Active Medications Generic Name Dose Route Start Last Admin Trade Name Freq PRN Reason Stop Dose Admin Acetaminophen 650 mg 07/25/20 17:18 07/27/20 22:43 Acetaminophen 325 Mg Tab PO 650 mg Q4H PRN Administration Headache/Fever/Mild Pain (1-3) Carvedilol 25 mg 07/25/20 21:00 07/28/20 20:01 Carvedilol 6.25 Mg Tab PO 25 mg BID MAC Administration Dexamethasone 4 mg 07/27/20 08:00 07/28/20 09:34 Dexamethasone 4 Mg Tab PO 4 mg QAM-WM MAC Administration Famotidine 20 mg 07/25/20 21:00 07/28/20 20:01 Famotidine 20 Mg Tab PO 20 mg BID MAC Administration Furosemide 20 mg 07/26/20 09:00 07/28/20 09:34 Furosemide 20 Mg Tab PO 20 mg DAILY MAC Administration Glipizide 10 mg 07/25/20 21:00 07/28/20 20:01 Glipizide 10 Mg Tab PO 10 mg BID MAC Administration Hydralazine HCl 25 mg 07/25/20:00 07/28/20 20:02 Hydralazine 25 Mg Tab PO 25 mg TID MAC Administration Insulin Human Lispro 0 units 07/25/20 17:18 07/28/20 17:18 Humalog 300 Units/3 Ml Vial SC 3 unit .MILD SLIDING SCALE PRN Administration Mild Correctional Scale Insulin Human Lispro 0 units 07/25/20 17:18 07/28/20 20:06 Humalog 300 Units/3 Ml Vial SC 4 units .BEDTIME SLIDING SC PRN Administration Bedtime Correctional Scale Lisinopril 20 mg 07/26/20 09:00 07/28/20 09:34 Lisinopril 20 Mg Tab PO 20 mg DAILY MAC Administration Metformin HCl 500 mg 07/25/20 21:00 07/28/20 20:02 Metformin 500 Mg Tab PO 500 mg BID MAC Administration - Exam General Appearance: NAD, awake alert ENT: moist mucosa Heart: RRR Respiratory: no wheezes, no rales, no ronchi, normal chest expansion Gastrointestinal: non-distended Psychiatric - other findings: a bit agitated, oriented to person, not sure where he is Hosp A/P (1) Brain metastases Code(s): C79.31 - SECONDARY MALIGNANT NEOPLASM OF BRAIN Status: Acute (2) 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 Code(s): C64.9 - MALIGNANT NEOPLASM OF UNSP KIDNEY, EXCEPT RENAL PELVIS; C78.00 - SECONDARY MALIGNANT NEOPLASM OF UNSPECIFIED LUNG Status: Chronic (3) Chronic diastolic CHF (congestive heart failure) Code(s): I50.32 - CHRONIC DIASTOLIC (CONGESTIVE) HEART FAILURE Status: Chronic (4) Elevated troponin Code(s): R77.8 - OTHER SPECIFIED ABNORMALITIES OF PLASMA PROTEINS Status: Acute (5) Diabetes mellitus type 2 in nonobese Code(s): E11.9 - TYPE 2 DIABETES MELLITUS WITHOUT COMPLICATIONS Status: Chronic (6) CKD (chronic kidney disease), stage III Code(s): N18.3 - CHRONIC KIDNEY DISEASE, STAGE 3 (MODERATE) * DO NOT USE * Status: Chronic - Plan Patient clearly stated before becoming more confused that he didn't want anything done for his cancer. He just wanted to return home to his family for the remainder of his days. Daughter and granddaughters state that they don't think they can take care of him at home, especially since they can't be there 24 hours per day. Case management and palliative care working with family to determine where to go on hospice.
[2020-07-29] MEDS: hydrALAZINE 25 MG TAB PO SCH ×3 (09:01→19:32)
[2020-07-29] MEDS: Lisinopril 20 MG TAB PO SCH (09:01)
[2020-07-29] MEDS: glipiZIDE 10 MG TAB PO SCH ×2 (09:01→19:31)
[2020-07-29] MEDS: metFORMIN 500 MG TAB PO SCH ×2 (09:02→19:31)
[2020-07-29] MEDS: Dexamethasone 4 MG TAB PO SCH (09:02)
[2020-07-29] MEDS: Furosemide 20 MG TAB PO SCH (09:02)
[2020-07-29] MEDS: Carvedilol 6.25 MG TAB PO SCH ×2 (09:02→19:32)
[2020-07-29] MEDS: Famotidine 20 MG TAB PO SCH ×2 (09:02→19:31)
--- NOTE | 2020-07-29 11:56 | EKG ---
Test Reason : STAT Blood Pressure : / mmHG Vent. Rate : 080 BPM Atrial Rate : 080 BPM P-R Int : 160 ms QRS Dur : 154 ms QT Int : 444 ms P-R-T Axes : 042 043 041 degrees QTc Int : 512 ms Normal sinus rhythm Right bundle branch block Abnormal ECG When compared with ECG of 25-JUL-2020 10:39, (Unconfirmed) Left anterior fascicular block is no longer Present Confirmed by MARTIN AMAYA (2) on 07/29/2020 11:55:56 AM Referred By: SONNY FITZPATRICK Confirmed By:MARTIN AMAYA
[2020-07-29] MEDS: Acetaminophen 325 MG TAB PO PRN (23:05)
--- NOTE | 2020-07-30 07:26 | PDOC.HOSPP ---
- Subjective Encounter Date: 07/30/20 Encounter Time: 08:30 Subjective: Patient sleeping in bed. Did not wake him up or disturb him. - Objective Vital Signs & Weight: Vital Signs (12 hours) Temp Pulse Resp BP BP Pulse Ox 07/29/20 19:32 148/68 H 07/29/20 19:30 98.1 F 87 24 H 148/68 H 96 Weight Admit Weight 195 lb Weight 195 lb I&O: 07/29/20 07/30/20 07/31/20 06:59 06:59 06:59 Intake Total 1330 1350 Balance 1330 1350 Result Diagrams: 07/26/20 04:18 07/26/20 04:18 Additional Labs: Accuchecks 07/30/20 07/29/20 07/29/20 06:27 22:04 15:47 POC Glucose 66 L 245 H 167 H 07/29/20 10:59 POC Glucose 134 H Hospitalist ROS - Medication Medications: Active Medications Generic Name Dose Route Start Last Admin Trade Name Freq PRN Reason Stop Dose Admin Acetaminophen 650 mg 07/25/20 17:18 07/29/20 23:05 Acetaminophen 325 Mg Tab PO 650 mg Q4H PRN Administration Headache/Fever/Mild Pain (1-3) Carvedilol 25 mg 07/25/20 21:00 07/29/20 19:32 Carvedilol 6.25 Mg Tab PO 25 mg BID MAC Administration Dexamethasone 4 mg 07/27/20 08:00 07/29/20 09:02 Dexamethasone 4 Mg Tab PO 4 mg QAM-WM MAC Administration Famotidine 20 mg 07/25/20 21:00 07/29/20 19:31 Famotidine 20 Mg Tab PO 20 mg BID MAC Administration Furosemide 20 mg 07/26/20 09:00 07/29/20 09:02 Furosemide 20 Mg Tab PO 20 mg DAILY MAC Administration Glipizide 10 mg 07/25/20 21:00 07/29/20 19:31 Glipizide 10 Mg Tab PO 10 mg BID MAC Administration Hydralazine HCl 25 mg 07/25/20 21:00 07/29/20 19:32 Hydralazine 25 Mg Tab PO 25 mg TID MAC Administration Insulin Human Lispro 0 units 07/25/20 17:18 07/28/20 17:18 Humalog 300 Units/3 Ml Vial SC 3 unit .MILD SLIDING SCALE PRN Administration Mild Correctional Scale Insulin Human Lispro 0 units 07/25/20 17:18 07/28/20 20:06 Humalog 300 Units/3 Ml Vial SC 4 units .BEDTIME SLIDING SC PRN Administration Bedtime Correctional Scale Lisinopril 20 mg 07/26/20 09:00 07/29/20 09:01 Lisinopril 20 Mg Tab PO 20 mg DAILY MAC Administration Metformin HCl 500 mg 07/25/20 21:00 07/29/20 19:31 Metformin 500 Mg Tab PO 500 mg BID MAC Administration Hosp A/P (1) Brain metastases Code(s): C79.31 - SECONDARY MALIGNANT NEOPLASM OF BRAIN Status: Acute (2) 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 Code(s): C64.9 - MALIGNANT NEOPLASM OF UNSP KIDNEY, EXCEPT RENAL PELVIS; C78.00 - SECONDARY MALIGNANT NEOPLASM OF UNSPECIFIED LUNG Status: Chronic (3) Chronic diastolic CHF (congestive heart failure) Code(s): I50.32 - CHRONIC DIASTOLIC (CONGESTIVE) HEART FAILURE Status: Chronic (4) Elevated troponin Code(s): R77.8 - OTHER SPECIFIED ABNORMALITIES OF PLASMA PROTEINS Status: Acute (5) Diabetes mellitus type 2 in nonobese Code(s): E11.9 - TYPE 2 DIABETES MELLITUS WITHOUT COMPLICATIONS Status: Chronic (6) CKD (chronic kidney disease), stage III Code(s): N18.3 - CHRONIC KIDNEY DISEASE, STAGE 3 (MODERATE) * DO NOT USE * S tatus: Chronic - Plan Patient clearly stated before becoming more confused that he didn't want anything done for his cancer. He just wanted to return home to his family for the remainder of his days. Daughter and granddaughters state that they don't think they can take care of him at home, especially since they can't be there 24 hours per day. Case management and palliative care working with family to determine where to go on hospice. Awaiting placement for hospice.
[2020-07-30] MEDS: Lisinopril 20 MG TAB PO SCH (08:11)
[2020-07-30] MEDS: hydrALAZINE 25 MG TAB PO SCH ×3 (08:11→19:11)
[2020-07-30] MEDS: Famotidine 20 MG TAB PO SCH ×2 (08:11→19:11)
[2020-07-30] MEDS: Dexamethasone 4 MG TAB PO SCH (08:12)
[2020-07-30] MEDS: glipiZIDE 10 MG TAB PO SCH ×2 (08:12→19:11)
[2020-07-30] MEDS: metFORMIN 500 MG TAB PO SCH ×2 (08:12→19:12)
[2020-07-30] MEDS: Carvedilol 6.25 MG TAB PO SCH ×2 (08:12→19:12)
[2020-07-30] MEDS: Furosemide 20 MG TAB PO SCH (08:13)
--- NOTE | 2020-07-30 11:31 | PDOC.PALPN ---
Palliative Progress Note - Subjective Awake, complains of minimal pain ot right mid arm/elbow. States he is ready to "get out of the hospital". Grateful for a niece who has agreed to care for him at discharge. - Objective Vital Signs: Vital Signs - Most Recent Temp Pulse Resp BP Pulse Ox 97.8 F 84 18 161/73 H 97 07/30/20 07:51 07/30/20 07:51 07/30/20 07:51 07/30/20 07:51 07/30/20 08:10 - Physical Exam Constitutional: NAD, ill appearing HEENT: EOMI, moist MMs Respiratory: no rales, no rhonchi, no wheezing, unlabored breathing Cardiovascular: RRR, diminished peripheral pulses Gastrointestinal: continent, soft, non-tender Musculoskeletal: no cyanosis, no clubbing, pulses present Neurology: moves all 4 limbs, no focal deficits Skin: no lesions, no rash, bruising Deviation from normal: Oreinted to self, place. Mild confusion, redirected. - Assessment (1) Palliative care encounter Code(s): Z51.5 - ENCOUNTER FOR PALLIATIVE CARE Current Visit: Yes Status: Acute (2) Brain metastases Code(s): C79.31 - SECONDARY MALIGNANT NEOPLASM OF BRAIN Current Visit: Yes Status: Acute (3) Chronic diastolic CHF (congestive heart failure) Code(s): I50.32 - CHRONIC DIASTOLIC (CONGESTIVE) HEART FAILURE Current Visit: Yes Status: Chronic (4) 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 Code(s): C64.9 - MALIGNANT NEOPLASM OF UNSP KIDNEY, EXCEPT RENAL PELVIS; C78.00 - SECONDARY MALIGNANT NEOPLASM OF UNSPECIFIED LUNG Current Visit: Yes Status: Chronic (5) Acute respiratory failure with hypoxia Code(s): J96.01 - ACUTE RESPIRATORY FAILURE WITH HYPOXIA Current Visit: No Status: Acute (6) Multiple lung nodules Current Visit: No Status: Acute - Plan Plan: Patient Goal of Care is to return to a home setting with family and hospice. Family concerned that he can not return to independent home setting locally. Plan being established where family will drive to [place] in the [place] to live with family, CM working on arranging Hospice for him to assume care once he arrives there. Palliative Care will sign off as Goal of Care established and CM facilitating communication with Hospice in community where patient will reside. [35] minutes spent on this encounter with >50% of the time in counseling and coordination of care. - ROS Constitutional: alert, weakness ENT: other (Negative for congestion, throat irritation) Respiratory: other (Negative for cough, ) Cardiology: other (deneis chest pain or palpitations) Musculoskeletal: arm pain Neurological: confusion
[2020-07-30] MEDS: HumaLOG 300 UNITS/3 ML VIAL SC PRN (16:03)
[2020-07-30] MEDS: Acetaminophen 325 MG TAB PO PRN (19:11)
[2020-07-31 08:28] VITALS: BP 169/78; TEMP 97.6
--- NOTE | 2020-07-31 12:14 | PDOC.HOSPP ---
- Subjective Encounter Date: 07/31/20 Encounter Time: 09:00 Subjective: Patient without complaint. Happy to be going home today and that his niece will care for him. - Objective Vital Signs & Weight: Vital Signs (12 hours) Temp Pulse Resp BP Pulse Ox 07/31/20 08:13 97.6 F 72 20 169/78 H 96 Weight Admit Weight 195 lb Weight 195 lb I&O: 07/30/20 07/31/20 08/01/20 06:59 06:59 06:59 Intake Total 1350 2160 Balance 1350 2160 Result Diagrams: 07/26/20 04:18 07/26/20 04:18 Additional Labs: Accuchecks 07/31/20 07/30/20 07/30/20 05:55 21:28 15:50 POC Glucose 106 H 235 H 280 H 07/30/20 11:21 POC Glucose 136 H Hospitalist ROS - Review of Systems Constitutional: reports: weakness. denies: fever Respiratory: denies: cough, shortness of breath Cardiovascular: denies: chest pain Gastrointestinal: denies: nausea, vomiting - Exam General Appearance: NAD, awake alert ENT: moist mucosa Heart: RRR, no murmur, no gallops, no rubs Respiratory: CTAB, no wheezes, no rales, no ronchi Gastrointestinal: soft, non-tender, non-distended, normal bowel sounds Psychiatric: normal affect, normal behavior Hosp A/P (1) Brain metastases Code(s): C79.31 - SECONDARY MALIGNANT NEOPLASM OF BRAIN Status: Acute (2) 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 Code(s): C64.9 - MALIGNANT NEOPLASM OF UNSP KIDNEY, EXCEPT RENAL PELVIS; C78.00 - SECONDARY MALIGNANT NEOPLASM OF UNSPECIFIED LUNG Status: Chronic (3) Chronic diastolic CHF (congestive heart failure) Code(s): I50.32 - CHRONIC DIASTOLIC (CONGESTIVE) HEART FAILURE Status: Chronic (4) Elevated troponin Code(s): R77.8 - OTHER SPECIFIED ABNORMALITIES OF PLASMA PROTEINS Status: Acute (5) Diabetes mellitus type 2 in nonobese Code(s): E11.9 - TYPE 2 DIABETES MELLITUS WITHOUT COMPLICATIONS Status: Chronic (6) CKD (chronic kidney disease), stage III Code(s): N18.3 - CHRONIC KIDNEY DISEASE, STAGE 3 (MODERATE) * DO NOT USE * Status: Chronic - Plan Patient clearly stated before becoming more confused that he didn't want anything done for his cancer. He just wanted to return home to his family for the remainder of his days. Daughter and granddaughters state that they don't think they can take care of him at home, especially since they can't be there 24 hours per day. Case management and palliative care working with family to determine where to go on hospice. Niece has agreed to care for the patient. Being discharged home with family this morning.
--- NOTE | 2020-07-31 19:30 | PQF ---
CLINICAL DOCUMENTATION CLARIFICATION FORM: Dear Dr. SONNY FITZPATRICK Date: 07-31-20 Please exercise your independent, professional judgment in responding to the clarification form. Clinical indicators are provided on the bottom of this form for your review. Please check appropriate box(es): [ ] Protein Calorie Malnutrition: [ ] Mild [ ] Moderate [ ] Severe [ ] Other Malnutrition (please specify) [ ] Other diagnosis [ ] Unable to determine In addition, please specify: Present on Admission (POA): [ ] Yes [ ] No [ ] Unable to determine For continuity of documentation, please document condition throughout progress notes and discharge summary. Thank You. 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 Pt weighed 233.6# on 03/01/20 during a previous admit. 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 Pt weighed 233.6# on 03/01/20 during a previous admit. He reported vomiting a couple times/week for ~3 months ; Noted mild buccal fat pad wasting, mild temporalis and pectoralis muscle wasting; suggestive of severe malnutrition in the context of chronic illness TREATMENT / RESULTS AND LOCATION IN MR: ELECTRICAL APPLIANCE SERVICER CONSULT 07-26-20: 1. Continue CC(1999) diet, leaving off Low Sodium to promote intake. 2. Recommend Glucerna TID. 3. Provide anti-emetic PRN. Moderate Malnutrition (in acute illness) Energy Intake: <75% of estimated energy requirement for > 7 days Weight Loss: 1-2%/1 week; 5%/ 1 month; 7.5%/3 months Other: mild body fat loss; mild muscle mass loss; mild fluid accumulation; Severe Malnutrition (in acute illness) Energy Intake: = 50% of estimated energy requirement for = 5 days Weight Loss: >2%/1 week; >5%/1 month; >7.5%/3 months Other: moderate body fat loss; moderate muscle mass loss; moderate- severe fluid accumulation; measurably reduced fisher gill net strength Moderate Malnutrition (in chronic illness) Energy Intake: <75% of estimated energy requirement for =1 month Weight Loss: 5%/1 month; 7.5%/3 months; 10%/6 months; 20%/1 year Other: mild body fat loss; mild muscle mass loss; mild fluid accumulation Severe Malnutrition (in chronic illness) Energy Intake: =75% of estimated energy requirement for =1 month Weight Loss: >5%/1 month; >7.5%/3 months; >10%/6 months; >20%/1 year Other: severe body fat loss; severe muscle mass loss; severe fluid accumulation; measurably reduced fisher gill net strength CDS Signature: Cristy Mai Phone #: [phone] Date:07-31-20 This is a permanent part of the Medical Record [facility]
--- NOTE | 2020-08-01 04:32 | DIS ---
DATE OF ADMISSION: 07/26/2020 DATE OF DISCHARGE: 07/31/2020 REASON FOR ADMISSION: Fall with indeterminate troponin. DIAGNOSES AT DISCHARGE: 1. Malignant neoplasm of the kidney, metastatic to the lung and now to the brain with cerebral edema. 2. Chronic diastolic congestive heart failure. 3. Diabetes mellitus type 2. 4. Diastolic congestive heart failure. 5. Chronic kidney disease stage 3. PROCEDURES: 1. CT of the brain without contrast showing numerous abnormalities within the brain, presumably secondary to metastatic disease. Multiple inflammatory foci are much less likely including a lesion within the right cerebellar hemisphere with prominent mass effect in the 4th ventricle. 2. MRI of the brain showing numerous supratentorial and infratentorial enhancing intra-axial lesions consistent with extensive metastatic disease, including lesions in the right cerebellar hemisphere causing significant vasogenic edema with mass effect, obliteration of the 4th ventricle, downward extension of the cerebellar tonsils and right to left midline shift within the posterior fossa. There are also scattered areas of increased signal intensity on the diffusion-weighted imaging suggesting possibility of small bilateral acute infarctions, though it could be related to tiny intracranial metastatic foci. CONSULTATIONS: None. SUMMARY OF HOSPITAL COURSE: This is a 70-year-old male, who was diagnosed with likely renal cell cancer with metastasis to the lungs when he was admitted a month ago. He had a followup in the Cancer Clinic. Then he stated that the cancer doctor brought in a lot of people in the room with him. He got upset and he left and saying he does not want to do any sort of chemotherapy, surgery, or radiation for his cancer. He just wants to at home. The patient has had some decline since then and then had a couple of falls. He was brought in after a fall without significant trauma. In the emergency room, he had indeterminate troponins and we asked to observe him in the hospital overnight. On my initial exam, I did note a left facial droop along with some left leg weakness. The patient had a CT scan done of the brain with above results and followed by an MRI. I did discuss the results with the patient and with his family. He stated he did not want any sort of intervention for this done. He just wanted to go home. The family agreed that he did not want any sort of interventions done, so Neurosurgery was not consulted. We did put him on some dexamethasone for the swelling. The patient remained stable during hospitalization. Given his decreased functional status, there was concern about where he could go to be taken care of as his daughter and 2 granddaughters where he is living with did not think they could take care of him. Eventually, a niece back in [facility] where he came from said that she would be willing to care for him at home and so patient is being discharged on hospice. DISCHARGE MANAGEMENT: Discharged home on hospice. DISCHARGE MEDICATIONS: 1. Dexamethasone 4 mg daily, 7 tabs dispensed. 2. Carvedilol 25 mg twice a day. 3. Furosemide 20 mg daily. 4. Glipizide 10 mg twice a day. 5. Hydralazine 25 mg 3 times a day. 6. Lisinopril 20 mg daily. 7. Metformin 1000 mg twice a day. 8. Multivitamin daily. The patient is to follow up with the hospice doctor. ACTIVITY: As tolerated. DIET: Diabetic diet. Job ID: [id number]
== END 2020-07-31 11:26 | disposition hospice, home (50) | DRG 54 ==
LOC: ERS 10:30 → 2SW 14:00 → OBSVTOIN 07-26 16:23 → ONC 07-27 14:37
PROVIDERS: ADMIT Emergency Medicine; ATTEND Emergency Medicine
DX: C79.31 Secondary malignant neoplasm of brain (principal); J96.01 Acute respiratory failure with hypoxia; G93.6 Cerebral edema; C64.9 Malignant neoplasm of unspecified kidney, except renal pelvis; C78.00 Secondary malignant neoplasm of unspecified lung; I13.0 Hypertensive heart and chronic kidney disease with heart failure and stage 1 through stage 4 chronic kidney disease, or unspecified chronic kidney disease; J90 Pleural effusion, not elsewhere classified; I50.32 Chronic diastolic (congestive) heart failure; N18.30 Chronic kidney disease, stage 3 unspecified; Z51.5 Encounter for palliative care; E11.22 Type 2 diabetes mellitus with diabetic chronic kidney disease; R77.8 Other specified abnormalities of plasma proteins; Z90.49 Acquired absence of other specified parts of digestive tract; Z85.118 Personal history of other malignant neoplasm of bronchus and lung; Z88.6 Allergy status to analgesic agent; Z87.891 Personal history of nicotine dependence; Z79.899 Other long term (current) drug therapy; Z79.84 Long term (current) use of oral hypoglycemic drugs
CPT/HCPCS: 36415; 36416; 70450; 70553; 80053; 82550; 82553; 84484; 85025; 85610; 85730; 87635; 93005; 93010; 96374; 96375; A9579; G0378; J1100; J2060; J2270; J8540; U0003